=== PATIENT | male | born 2000 | race Caucasian/White ===

== ENCOUNTER 2023-07-10 10:38 | Outpatient (OUT) | payer BC, OTHER, SELFPAY ==
[2023-07-10 11:49] LABS: Alanine Aminotransferase 85 U/L (16-63); Albumin Level 3.9 g/dL (3.4-5.0); Alkaline Phosphatase 72 U/L (46-116); Anion Gap 13.4; Aspartate Amino Transferase 28 U/L (15-37); BUN Creatinine Ratio 17.2; Bilirubin Total 0.3 mg/dL (0.2-1.0); Calcium 8.9 mg/dL (8.5-10.1); Carbon Dioxide 26.8 mmol/L (21.0-32.0); Chloride 105 mmol/L (98-107); Chol HDL Ratio 5.1; Cholesterol 205 mg/dL (<=200); Estimated GFR (African America >60 (>=60); Estimated GFR (Non-African Ame >60 (>=60); Glucose 99 mg/dL (74-106); HDL Cholesterol 40 mg/dL (40-60); Potassium 4.2 mmol/L (3.5-5.1); Sodium 141 mmol/L (136-145); Thyroid Stimulating Hormone 2.971 uIU/mL (0.358-3.740); Total Protein 7.9 g/dL (6.4-8.2); Triglycerides 124 mg/dL (<=150); VLDL CHOLESTEROL 24.8 mg/dL
[2023-07-10 11:50] LABS: Free T3 2.83 pg/mL (2.18-3.98)
[2023-07-10 14:04] LABS: Estimated Average Glucose 111 mg/dL; Glycohemoglobin A1C 5.5 % (4.5-6.2)
[2023-07-10 14:22] LABS: Basophils Percent Auto 0.3 % (0.2-2.0); Eosinophils Percent Auto 0.7 % (0.9-7.0); Hematocrit 42.9 % (42.0-54.0); Hemoglobin 13.9 g/dL (14.0-18.0); Immature Granulocytes Abs Auto 0.01 10^3/uL (0.00-0.03); Immature Granulocytes Pct Auto 0.2 % (0.0-0.5); Lymphocytes Absolute Auto 2.9 10^3/uL (1.2-3.8); Mean Corpuscular HGB Conc 32.4 g/dL (29.9-35.2); Mean Corpuscular Hemoglobin 28.4 pg (25.9-34.0); Mean Corpuscular Volume 87.7 fL (80.0-94.0); Monocytes Absolute Auto 0.4 10^3/uL (0.3-0.8); Monocytes Percent Auto 6.7 % (1.7-12.0); Neutrophils Absolute Auto 2.8 10^3/uL (1.4-6.5); Neutrophils Percent Auto 45.1 % (43.0-75.0); Platelet Count 303 10^3/uL (150-450); Red Blood Count 4.89 10^6/uL (4.70-6.10); White Blood Count 6.2 10^3/uL (4.0-11.0)
[2023-07-11 09:10] LABS: Insulin 34.8 uIU/mL (2.6-24.9)
== END 2023-07-10 10:39 | disposition home or self-care (01) ==
LOC: LAB 10:47
PROVIDERS: PCP Family Medicine; Visit Provider Family Medicine
DX: E03.9 Hypothyroidism, unspecified (principal); E66.01 Morbid (severe) obesity due to excess calories; E78.5 Hyperlipidemia, unspecified; R73.09 Other abnormal glucose; D64.9 Anemia, unspecified
CPT/HCPCS: 36415; 80053; 80061; 83036; 83525; 83540; 84436; 84439; 84443; 84481; 85025

== ENCOUNTER 2024-08-03 08:30 | Outpatient (OUT) | payer BC, OTHER, SELFPAY ==
[2024-08-03 10:57] LABS: Free T3 2.82 pg/mL (2.18-3.98); Thyroid Stimulating Hormone 2.567 uIU/mL (0.358-3.740)
== END 2024-08-03 08:31 | disposition home or self-care (01) ==
LOC: LAB 08:36
PROVIDERS: PCP Family Medicine; Visit Provider Family Medicine
DX: E03.9 Hypothyroidism, unspecified (principal)
CPT/HCPCS: 36415; 84436; 84443; 84481

== ENCOUNTER 2024-08-17 12:21 | Outpatient (OUT) | payer BC, OTHER, SELFPAY ==
--- OUTSIDE RECORDS SUMMARY | 2024-08-17 12:37 | XMS_ITS | CCD ---
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 fOM6xQQ9bR7fJzJuKeS1 OSwvE729OeNiaIOd Jsmmt4fex9nnbFh3XkLz KOYlnfTyxWjoSWI9w2On Oh36A5MolIayk5QxUlm6 ng12cYOjc0B8lSC1 O1HiSUDkypsmcAKyzHuk YC6xWGVzdapkZGBemJ0s RYZxV9h4FxOzLwO1MDlc R9LnjcT1RGKasSTk RFXlzVADbM4kklaml3fo lujhHrQaFPDqRTd4JEg8 QEBhnUavZuZyDNL9LfH0 FKN2iNIggC5kkZid hhgeuF8sDlg+XTP5aWFi nTPRUM3aPamzbTI+PHRk GUM2uGztGGixJTJoaP4p CBQvC9p5MkRrLdP5 POkfI0WmerO8NCPcvYSq BFHalKVDtH0hbhjnd8sz dowmPyYjHSXkISd6YAc2 LWFsaWduOiBsZWZ0 OqO7YIJ6rNCkgM8esXah fxmwvE1qDew+QmlydGgg ANZ7LRy4R7EfVzy8OWOp pBatIO4sxWUpCVdw Ya3ipDosvQhzMA9tFHSq bxslj041YoQov0svVLAs bKSpBPzeIDJ6F63eh2B2 LTZeOEBdVAV3eGF3 uB5bnMxgdlddlKRwvThl msQckIzwOXbmTKcuA575 NGKqhInsQfMiGFk5V6Mu Qpa1FDBdvIqfAD4y oGBlRQnjVe9nsKasjRxe SR8dEIAerkakg376KxGf d4mqFLGopKLwYFtxHBE2 W33zf5X0CZRlDSKb JGT6pZG6uA9diPajgdip bGVmdDsgdmVydGljYWwt HVvqN349APBxsNrgLnAw mSh1F6OoMsj9ZHAn qEcoIN6qjMIqYWxdIu8g sLwtbEriZO5pJBAfetcs o291DfTym6wuEOVkbMGi BBexFDI2Z47xw1H0 ZDOhTHUeNLB3oPJ6nC5k bGlnbjogbGVmdDsgdmVy nHnnSGjuMZojW519FFZu cDsnPlBhdGllbnQg TKsrLEs6T6FdEkfrfEB+ JT85UGPjVJ14zBVwtFOu l2peuQs2RyBsLYZmDLC5 rRqlMQkpu6VuUYHi Q47nmASdj8Z3MYWinYza dNCnIqYfuUL2oX7aLJjs snycy8oaodokLpogu4kx xq05wD43E38xJLbf ZHRoPSIzMCUiIHZhbGln ru9rlH0oEt0+PGNvbCB3 iTI1iC4dOWXcZnL2XAeo R817ZvTsmCRaStaz h0lca0bluLs7NwL3HSKk zrZtfMewPGZ3n1SjKq24 F62pPCquFYTtPRVzWJRj QQMjfEesjo2jrR8w Ii8+LCXkyLB7hFW2rX0p UrFlWmU0SNosI923WhFj hWSgNporI93dR4OhbIP+ DEDfMje1LHYysKez UT7kjLVyUVqmWl2xYVU4 RkChQvFkLYasG7QpEKZr znqtnttfzFN0TLVdASFp gE11Qf7noDfsZNCc rUHIaH3lfukgy7bfvlje IdGpIAMfDPq2CQl0UQXl lFpwDyJcDIP0BnX4SME5 lLKcaE2ivCulfxrf kF1rU6LuAXOeudbyWe81 yI5bCpVcZaV3EMxnGxt+ L79AXYGVNDMMBdYTQGDA DMJTCYCZCL41JT19 rZNbo2K0fGO1H8MbRKDn svurhjlirBD6JYTeDJFn rW06tTYcTOklSl7pv4K5 q640HBSjSAUuyJ95 Zz2bfKnxGHGanJJCtI6j mkvvd3mjivgoFrFrJFNg XIn7UWe0YOKcgTgkXaNr BFZ6GmQ5FPS4bYYg rM0lgElxsvmrjO1fKef+ MDgvMjcvMjAwMjwvdGQ+ HSSbLAW2xGsjVVgzRSNz gQ0nLZVbE1f0VvFh VpA7CMjvI6YcAMWcspwt Fv52wT4hXzVfPqS1OYxp L6ZqrrB2UQWhqJMqTAas BJW2I78pd3T1PGZm ZEWvWBI3qQE7lQ6niXnn bjogbGVmdDsgdmVydGlj YLycWJyhN476ZHRmyXis BlTvUBlnTFDpTH26 SN93nDPsk2U3hWZ1V8Sx QDGagyrozlmshOK1LCOz RSQgbR87tZCfWEjeSc3g l2Z7n121URQmQMIj cS39Db7qeMptCVEhaOPD sE4dbrdoo2lkjtkgEjNm ZZJpFUy0WZr6RQUrcNha EhNbFLA8ChK6QRY3 kIDosF3ztYulevosaR4r Oyc+TUFMRTwvdGQ+PHRk PJV7uGtrEBteETRjxR3z HYGdR4b9SjEfNtJ8 YTgtP9DsGAIqhmcfWi19 dJ9hBpMePgQ1QInuM4Xx ekV9HMUhrDKjYFjvHHU8 R02cs8V4CDSuGOCi LIH2gKY9uM5lqOyrmvvd bGVmdDsgdmVydGljYWwt ZNhgX392VDPeqCaePhBt ZFFwDX1fsWsgaBQ+ IK62gc84V4OaMprcRiw0 AKOiCEN2sAH2gO1eCCJe GVnfc5U1wSC7A6LwofXv lw7xf0tuKUVpNPjs A21biBUxj6W2APQtqEQ2 DZGlvFnaEsKxyD26Qfs+ RSRosPyal6IrBmtlg1xc n2zuyPi9ShGpMKBz sdZorWpbEDV6r3KiAa82 D36jQPznIKJgJVAvLVSd ECLtrBwooe2feG4pRh2+ FTZmjWV0yYZ3tG4h LxHqNgY7ZHbpM223ZvSz aUGxKqgqn4rai8ygzHr9 IjIwJSIgdmFsaWduPSJ0 j7ShVx35N9IkuWyk m3OiIei4dm14hNRug7T0 dAC5P6OjEQAwvehtkUOh qZquNX6nDYOwbmtfJOYx fS9uEMEqJ6e0JoKk DpY0PRrcQ9CgsaW4VDGv oGRvSBInrCPIkW9pxunc v6alxrgwWmMkFCKaIWr5 ALm3FHGcvPwzXjNe JJZ0TwW1GBT4cQHvfN9k iFujbvfobB2fQpc+UGh5 t9xliVWhOJ0kdDU3LX94 LU30jADum9F0iLO7 Z9VoSODgtbnnmmacdRV7 SRQwTBRghL22Vp3opDjj Nk3jQUOnUQX9OTXymRXb E5RbhE3xJxKnNLOo CVRfF0HoyMIbMCynL982 BMmaGnU0HVEhphTpJ5Kw UAFmnOnwWkB9b8F3Sx8H YV97PR93JJ40fXMp l5P5kXU6R4GgVGIouwhj xigrgJQ8DPSbHOEliT81 Lf4atSlpKl1kDXZaEYU8 FLSthPNvH1IoxP4u DwXgBDJfIHDiO4TjbGLh ZJbyN153UYhtBdL8CZKw xpNhM9DcKNCxkPjpDtL7 l5S3Hg5FKx06YH34 CH05nVSue3T7vLO2M6Py LXOvivknjwwxnOB9AHHo NRUxyR47Gu3bgDykQj1p HIZfIAX1PKGtjEJu T6KxjT5jKrVqRZDbGHKo S6BhxZLvUNkhF760TTuu HeW4YGQtluYqZ6CsXOJy sAxqSdN2s0B9Lv1Q XCywqiu7P6DyVdgvaYB+ NO72AZVnUQ07zKXpeTKb l0ubdCr5SkDtWLQtGWK5 zNexRXpxe5SnBKDz Y29 (more content not included)... [facility] Electronic Messagingon 06-28 Electronic Messaging --- --- --- --- --- --- --- --- --- From: Eloisa (Roberto)Eloisa To: CLIFFORD JOE Sent: 06/28/23 05:29:50 AM EST Subject: Discharge Summary Ready to View A summary regarding your recent visit is available in the Documents section of your Health Record. [facility] .QC SARS-CoV-2 (COVID-19)/Fl u/RSV (GeneXpert)on 06-27-2023 Internal Control Pass [facility] Comment on above: Order Comment: Order ed by Lorraine.[[email or web address]] Performed By: #### 7 [id number] ####[facility] (DEFAULT)[address] [place] [address] COVID/Flu/RSV (GeneXpert)on 06-27-2023 Flu A (GXpert COVFLURSV) Negative Normal Negative [facility] Comment on above: Performed By: #### 7 [id number] ####[facility] (DEFAULT)[address] [place] [address] Flu B (GXpert COVFLURSV) Negative Normal Negative [facility] Comment on above: Performed By: #### [id number] ####[facility] (DEFAULT)[address] [place] [address] RSV (GXpert COVFLURSV) Negative Normal Negative [facility] Comment on above: Performed By: #### 7 [id number], [id number] ####[facility] (DEFAULT)[address] [place] [address] SARS-CoV-2 (COVID-19) RNA MIGUEL ÁNGEL+probe Ql (Unsp spec) Negative Normal Negative [facility] Comment on above: Result Comment: Perf ormed by PCR methodology. Performed By: #### 7 [id number], [id number] ####[facility] (DEFAULT)[address] [place] [address] Discharge Noteon 06-27-2023 Discharge Note 2344-Pt medicated with IM Zofran. Pt given discharge instructions and verbalized understanding. Pt ambulated out of unit. [Electronically Signed on: 06/27/2023 23:49 EST] China Ortiz RN [Verified on: 06/27/2023 23:49 EST] China Ortiz RN [facility] ED Clinical Summaryon 2023 ED Clinical Summary [facility] - Emergency Department [address] [place], [place] [id number] ED Clinical Summary PERSON INFORMATION Name: CLIFFORD JOE Age: 23 Years Sex: MALE : 2000 MRN: Acct#: Visit Reason: Body aches; Cough; Nausea and vomiting; CONGESTION, VOMITING, COUGH Arrival: 06/27/2023 21:39:14 Discharge: 06/27/2023 23:44:00 LOS: 000 02:05 Check In: 06/27/2023 21:39:14 Checkout:06/27/2023 23:44:00 Address: [address] [place] [address] PCP: Provider, None PROVIDER INFORMATION Provider Role Assigned Unassigned China Ortiz RN ED Nurse 06/27/2023 22:14:06 Curly Encarnacion MD ED Provider 06/27/2023 23:02:53 VITALS INFORMATION Vital Sign Triage Latest Temperature Tympanic Temperature Temporal Artery Pulse Rate 120 bpm 120 bpm O2 Sat 99 % 99 % Respiratory Rate 18 br/min 18 br/min Blood Pressure /98 mmHg /98 mmHg MEDICAL INFORMATION Medications Given: Medication Dose Route ondansetron 4 mg Intramuscular Allergy Information: No known allergies PHYSICIAN DOCUMENTATION DISCHARGE INFORMATION: Discharge Disposition: Home Discharge Location: Home PATIENT EDUCATION INFORMATION Instructions: Influenza, Adult, Hcar-on-Msjl Follow-Up: With: Address: When: [place], [id number] [place], [place] [id number] [facility] () Within 5 to 7 days Comments: You were seen in the emergency department for evaluation of cough and cold symptoms. Your examination suggest this is from an viral upper respiratory infection, influenza. This will likely to improve over time. No antibiotic will be necessary as your immune system will likely get rid of the infection. Your symptoms may still be contagious to other people around you. Use universal precautions to avoid spreading the germs. Take 2 tablets acetaminophen or 2 tablets of ibuprofen 3 times a day as needed for aches or discomfort. Use throat lozenges or cough drops to help with throat irritation and cough. Contact your assigned on-call doctor for a follow-up appointment if you do not have a local family doctor. Alternatively, you may follow-up with the [facility] if you are not able to see a PCP in the recommended time. Continue with the current treatment as outlined by the ER physician, Dr Encarnacion. Called the emergency department if you have any questions concern. Return to the emergency department if you have significant symptoms that concerns you. DIAGNOSIS: Influenza-like illness Patient Understands: Yes - Patient/family/careg iver verbalizes understanding of instructions given Comment: [facility] ED Note - Physicianon 2023 ED Note - Physician Patient: CLIFFORD JOE Age: 23 years Sex: MALE : 2000 Associated Diagnoses: Influenza-like illness; Viral URI Author: Curly Encarnacion MD Basic Information Time seen: Date & time 06/28/2023 22:55:00. History source: Patient. Arrival mode: Private vehicle. History limitation: None. Additional information: Chief Complaint from Nursing Triage Note : Chief Complaint 06/27/2023 21:55 EST Chief Complaint vomiting, fever, sore throat, coughing, exposed to influenza. Onset this morning and worsening throughout the day. . History of Present Illness 23-year-old male presented to ER for evaluation of fever, chills, weakness, body aches. Vomiting. Patient has been around girlfriend with influenza-like illness. His girlfriend stated that she had definitely influenza infection. Has been around her friend and the friend's child, who has been tested several days ago, with positive influenza. This patient, apparently drank after the patient, several days ago. Yesterday started with a cough. Today felt worse. Complain of fever, vomiting, weakness, aches. Had been given buap-zzh-zxmltxz remedy at home, without improvement according to the patient. Recall that he had previous influenza vaccine when he was in high school but nothing recent. No other significant medical history Review of Systems Constitutional symptoms: Fever, chills, sweats, weakness, fatigue. Skin symptoms: No rash, Eye symptoms: Vision unchanged. ENMT symptoms: Sore throat, nasal congestion. Respiratory symptoms: Cough. Gastrointestinal symptoms: Vomiting. Genitourinary symptoms: No dysuria, Musculoskeletal symptoms: Muscle pain, Joint pain. Neurologic symptoms: Headache. Health Status Allergies: Allergic Reactions (Selected) No known allergies. Past Medical/ Family/ Social History Medical history: No active or resolved past medical history items have been selected or recorded., Reviewed as documented in chart. Surgical history: No active procedure history items have been selected or recorded., Reviewed as documented in chart. Family history: No family history items have been selected or recorded., Reviewed as documented in chart. Social history: Social & Psychosocial Habits Alcohol 06/27/2023 Alcohol Use: Never Substance Use 06/27/2023 Substance use: Never Tobacco 06/27/2023 Smoking tobacco use: Never tobacco user Electronic Cigarette/Vaping 06/27/2023 Electronic Cigarette Use: Never , Reviewed as documented in chart. Problem list: No qualifying data available . Physical Examination Vital Signs Vital Signs 06/27/2023 21:55 EST Temperature Oral 37.2 DegC Peripheral Pulse Rate 120 bpm HI Respiratory Rate 18 br/min Systolic Blood Pressure 122 mmHg Diastolic Blood Pressure 98 mmHg HI SpO2 99 % Oxygen Therapy Room air . Measurements 06/27/2023 21:55 EST Height 180.34 cm Weight 131.54 kg Weight Dosing 131.540 kg Body Mass Index Measured 40.45 kg/m2 . General: Examination revealed mildly ill-appearing male, awake and alert, appropriate, without obvious distress at this time. Answering questions appropriately, tachycardic. Warm to touch. Skin: Warm, dry. Head: Normocephalic, atraumatic. Neck: Supple, trachea midline, no tenderness. Eye: Extraocular movements are intact, normal conjunctiva. Ears, nose, mouth and throat: Hearing normal, slight nasal congestion. Wearing facial mask. Cardiovascular: No murmur, Normal peripheral perfusion, No edema, Tachycardia, S1, S2. Respiratory: Lungs are clear to auscultation, respirations are non-labored, breath sounds are equal, Symmetrical chest wall expansion. Gastrointestinal: Soft, Nontender, Normal bowel sounds. Back: Normal range of motion. Musculoskeletal: Normal ROM, normal strength, no tenderness, no swelling. Neurological: Alert and oriented to person, place, time, and situation, No focal neurological deficit observed. Psychiatric: Cooperative. Medical Decision Making Differential Diagnosis: Fever, viral syndrome, pharyngitis, influenza. Results review: Lab results : Lab Flowsheet 06/27/2023 21:50 EST SARS-CoV-2(Covid19)P CR(GXpert COVFLURSV) Negative Flu A (GXpert COVFLURSV) Negative Flu B (GXpert COVFLURSV) Negative RSV (GXpert COVFLURSV) Negative , Interpretation. Reexamination/ Reevaluation Relevant differential diagnosis: See above discussion Number and complexity of problems: 23-year-old male presented to ER for evaluation of nasal congestion, sore throat, vomiting, flulike illness. Patient has been around his girlfriend who had similar illness. She had symptoms several days prior to the patient. She is positive on testing for influenza A. She was also had exposure to other friends with positive influenza. Tests ordered and independent Interpretation: Patient COVID, influenza and RSV was negative. Even though he had a negative testing, I believe that his symptoms likely secondary to influenza and the (more content not included)... Normal [facility] ED Note-Nursingon 06-27-2023 ED Note-Nursing 2245-Pt brought back to rm 9. Awaiting swab results. Normal [facility] ED Patient Summaryon 024 ED Patient Summary [facility] - Emergency Department [address] [place] [address] PATIENT DISCHARGE INSTRUCTIONS Patient Information Name: CLIFFORD JOE Age: 23 Years Date of : 2000 Reason For Visit: Body aches; Cough; Nausea and vomiting; CONGESTION, VOMITING, COUGH Arrival Time: 06/27/2023 21:39:14 Primary Care Physician: Provider, None Attending Physician: Curly Encarnacion MD Comment: Visit Diagnosis: Diagnoses This Visit Body aches ([id number]) Cough (59309184) Influenza-like illness (J11.1) Nausea and vomiting ([id number]) The Pharmacy at [facility] is open Friday through Friday from 9A to 6P and Friday and Friday from 9A to 5P Prescription Information: If you have been given a prescription for narcotics, seek immediate medical attention if you have any difficulty breathing or any sudden status changes such as confusion and sleepiness. If you or anyone you know is experiencing suicidal thoughts, mental health, alcohol and/or drug addiction problems; contact the [facility] 02/12 Crisis Hotline -Text 4HOPE [place] 734982. If you received any narcotics, sedation, or any other medication that causes drowsiness for the next 24 hours, unless otherwise directed: ? Do not drive a car. ? Do not operate machinery such as power tools, lawn mowers, drills, sewing machines, or stoves ? Avoid alcoholic beverages and drugs for allergies, nerves, or sleep ? Do not make important personal or business decisions or sign any legal documents With: Address: When: [place] Leone [facility], [address] [place] [id number] Business (1) Within 5 to 7 days Comments: You were seen in the emergency department for evaluation of cough and cold symptoms. Your examination suggest this is from an viral upper respiratory infection, influenza. This will likely to improve over time. No antibiotic will be necessary as your immune system will likely get rid of the infection. Your symptoms may still be contagious to other people around you. Use universal precautions to avoid spreading the germs. Take 2 tablets acetaminophen or 2 tablets of ibuprofen 3 times a day as needed for aches or discomfort. Use throat lozenges or cough drops to help with throat irritation and cough. Contact your assigned on-call doctor for a follow-up appointment if you do not have a local family doctor. Alternatively, you may follow-up with the [facility] if you are not able to see a PCP in the recommended time. Continue with the current treatment as outlined by the ER physician, Dr Encarnacion. Called the emergency department if you have any questions concern. Return to the emergency department if you have significant symptoms that concerns you. Medication Information: The exam and treatment you received today in the [facility] Emergency Department were for an urgent problem and are not intended as complete care. It is important for you to follow up with a doctor, nurse practitioner, or physician?s assistant professor of english for ongoing care. If your symptoms become worse or you do not improve as expected and you are unable to reach your usual health care provider, you should return to the Emergency Department, we are available 24 hours a day. For those patients who have received Radiology results, the interpretation of your X-ray as given to you by our Emergency Department physician is only a preliminary report. The Radiologist will review your films and if there is a change in the diagnosis you will be notified by phone. Please make sure you have provided a working phone number so we can reach you if necessary. In the event that you had a lab culture while you were a patient in the Emergency Department, you will be notified by phone if there is a need to change your antibiotic. Please make sure you have provided a working phone number so we can reach you if necessary. [facility] Emergency Department has provided you with a complete list of medications post discharge. Please inform your on call/provider of your visit and for further instruction on these medications. Any specific questions regarding your chronic medications and dosages should be discussed with your primary care physician(s) and/or pharmacist. New Medications [facility], [address] [place] [phone], [phone] ondansetron (ondansetron 4 mg oral tablet, disintegrating) 1 tab(s) Oral (given by mouth) 3 times a day (scheduled) as needed as needed for nausea/vomiting for 3 Days. Refills: 0. Visit Information Allergies: Substance Reaction Symptoms Type Comments No known allergies Drug Vital Signs: Vitals and Measurements this Visit (last charted value for your 06/27/2023 visit) Vital Signs This Visit Temperature Oral: 37.2 DegC Peripheral Pulse Rate: 120 bpm Respi (more content not included)... Normal [facility] XR FOOT RIGHT 3+ VIEWSon XR FOOT RIGHT 3+ VIEWS Interpreted By: Kuldeep John, STUDY: XR FOOT RIGHT 3+ VIEWS INDICATION: Signs/Symptoms:dog bite. COMPARISON: None ACCESSION NUMBER(S): [id number] ORDERING CLINICIAN: SERGEY LOERA FINDINGS: Nonspecific soft tissue swelling of the dorsum of the right forefoot. No fracture or radiopaque foreign body. No osseous abnormality. IMPRESSION: Right forefoot soft tissue swelling. No osseous abnormality seen. Signed by: Kuldeep John 04/29/2023 3:55 PM Dictation workstation: [id number] [facility] XR Foot - right 3 Viewson Right forefoot soft tissue swelling. No osseous abnormality seen. Signed by: Kuldeep John 04/29/2023 3:55 PM Dictation workstation: [id number] MMODAL Interpreted By: Kuldeep John, STUDY: XR FOOT RIGHT 3+ VIEWS INDICATION: Signs/Symptoms:dog bite. COMPARISON: None ACCESSION NUMBER(S): [id number] ORDERING CLINICIAN: SERGEY LOERA FINDINGS: Nonspecific soft tissue swelling of the dorsum of the right forefoot. No fracture or radiopaque foreign body. No osseous abnormality. [facility] MMODAL Kuldeep John MD - 04/29/2023 Interpreted By: Kuldeep John, STUDY: XR FOOT RIGHT 3+ VIEWS INDICATION: Signs/Symptoms:dog bite. COMPARISON: None ACCESSION NUMBER(S): [id number] ORDERING CLINICIAN: SERGEY LOERA FINDINGS: Nonspecific soft tissue swelling of the dorsum of the right forefoot. No fracture or radiopaque foreign body. No osseous abnormality. IMPRESSION: Right forefoot soft tissue swelling. No osseous abnormality seen. Signed by: Kuldeep John 04/29/2023 3:55 PM Dictation workstation: [id number] [facility] Work Phone: Radiology Study observation (narrative) [facility] Work Phone: XR Foot - right 3 ViewsOrder ed By: Kuldeep John on 04-29-2023 [facility] Work Phone: AMYLASEon 07-18-2022 Amylase [Catalytic activity/Vol] 38 U/L Normal 25-115 [facility] Comment on above: Performed By: #### C BC #### [facility] [address] [place] [address] Dr. Edilberto Holloway CBC AUTO DIFFon 07-18-2022 BASO # 0.0 103/ul Normal 0.0-0.1 [facility] Comment on above: Performed By: #### C BC #### [facility] [address] [place] [address] Dr. Edilberto Holloway Basophils/100 WBC (Bld) 0.3 % Normal 0.2-2.0 [facility] Comment on above: Performed By: #### C BC #### [facility] [address] [place] [address] Dr. Edilberto Holloway EO # 0.0 103/ul Normal 0.0-0.7 [facility] Comment on above: Performed By: #### C BC #### [facility] [address] [place] [address] Dr. Edilberto Holloway Eosinophils/100 WBC (Bld) 0.3 % Critically low 0.9-7.0 [facility] Comment on above: Performed By: #### C BC #### [facility] [address] [place] [address] Dr. Edilberto Holloway Erythrocyte distribution width (RBC) [Ratio] 12.9 % Normal 11.0-15.0 [facility] Comment on above: Performed By: #### C BC #### [facility] [address] [place] [address] Dr. Edilberto Holloway Hematocrit (Bld) [Volume fraction] 44.1 % Normal 42.0-54.0 [facility] Comment on above: Performed By: #### C BC #### [facility] [address] [place] [address] Dr. Edilberto Holloway Hemoglobin (Bld) [Mass/Vol] 15.2 g/dL Normal 14.0-18.0 [facility] Comment on above: Performed By: #### C BC #### [facility] [address] [place] [address] Dr. Edilberto Holloway IG # 0.01 10e3/ul Normal 0.00-0.03 [facility] Comment on above: Performed By: #### C BC #### [facility] [address] [place] [address] Dr. Edilberto Holloway IG % 0.2 % Normal 0.0-0.5 [facility] Comment on above: Performed By: #### C BC #### [facility] [address] [place] [address] Dr. Edilberto Holloway LYMPH # 1.9 103/ul Normal 1.2-3.8 [facility] Comment on above: Performed By: #### C BC #### [facility] [address] [place] [address] Dr. Edilberto Holloway Lymphocytes/100 WBC (Bld) 31.2 % Normal 20.5-60.0 [facility] Comment on above: Performed By: #### C BC #### [facility] [address] [place] [address] Dr. Edilberto Holloway MANUAL DIFF REQ NO Normal [facility] Comment on above: Performed By: #### C BC #### [facility] [address] [place] [address] Dr. Edilberto Holloway MCH (RBC) [Entitic mass] 28.9 pg Normal 25.9-34.0 [facility] Comment on above: Performed By: #### C BC #### [facility] [address] [place] [address] Dr. Edilberto Holloway MCHC (RBC) [Mass/Vol] 34.5 g/dL Normal 29.9-35.2 [facility] Comment on above: Performed By: #### C BC #### [facility] [address] [place] [address] Dr. Edilberto Holloway MCV (RBC) [Entitic vol] 83.8 fL Normal 80.0-94.0 [facility] Comment on above: Performed By: #### C BC #### [facility] [address] [place] [address] Dr. Edilberto Holloway MONO # 0.4 103/ul Normal 0.3-0.8 [facility] Comment on above: Performed By: #### C BC #### [facility] [address] [place] [address] Dr. Edilberto Holloway Monocytes/100 WBC (Bld) 6.5 % Normal 1.7-12.0 [facility] Comment on above: Performed By: #### C BC #### [facility] [address] [place] [address] Dr. Edilberto Holloway NEUT # 3.7 103/ul Normal 1.4-6.5 [facility] Comment on above: Performed By: #### C BC #### [facility] [address] [place] [address] Dr. Edilberto Holloway Neutrophils/100 WBC (Bld) 61.5 % Normal 43.0-75.0 [facility] Comment on above: Performed By: #### C BC #### [facility] [address] [place] [address] Dr. Edilberto Holloway Platelet mean volume (Bld) [Entitic vol] 9.5 fL Normal 9.5-13.5 [facility] Comment on above: Performed By: #### C BC #### [facility] [address] [place] [address] Dr. Edilberto Holloway PLT 280 103/ul Normal 150-450 [facility] Comment on above: Performed By: #### C BC #### [facility] [address] [place] [address] Dr. Edilberto Holloway RBC 5.26 106/ul Normal 4.70-6.10 [facility] Comment on above: Performed By: #### C BC #### [facility] [address] [place] [address] Dr. Edilberto Holloway WBC 6.0 103/ul Normal 4.0-11.0 [facility] Comment on above: Performed By: #### C BC #### [facility] [address] [place] [address] Dr. Edilberto Holloway FREE THYROXINE INDEX T7on FTI 2.89 Normal 1.30-4.50 [facility] Comment on above: Performed By: #### C BC #### [facility] [address] [place] [address] Dr. Edilberto Holloway T3U 37.0 % Normal 33.0-40.0 [facility] Comment on above: Performed By: #### C BC #### [facility] [address] [place] [address] Dr. Edilberto Holloway T4 [Mass/Vol] 7.80 ug/dL Normal 4.50-12.10 [facility] Comment on above: Performed By: #### C BC #### [facility] [address] [place] [address] Dr. Edilberto Holloway LIPASEon 07-18-2022 Lipase [Catalytic activity/Vol] 57.0 U/L Critically low 73.0-393.0 [facility] Comment on above: Performed By: #### C BC #### [facility] [address] [place] [address] Dr. Edilberto Holloway OCC BLD IMMUNO SCREENon 03- OCCULT BLOOD Negative Normal NEGATIVE [facility] Comment on above: Performed By: #### O BSCRN #### [facility] [address] [place] [address] Dr. Edilberto Holloway PROF 14(COMP METB)on 023 Albumin [Mass/Vol] 4.5 g/dL Normal 3.4-5.0 [facility] Comment on above: Performed By: #### C BC #### [facility] [address] [place] [address] Dr. Edilberto Holloway Albumin/Globulin [Mass ratio] 1.3 {ratio} Normal [facility] Comment on above: Performed By: #### C BC #### [facility] [address] [place] [address] Dr. Edilberto Holloway ALP [Catalytic activity/Vol] 84 U/L Normal 46-116 [facility] Comment on above: Performed By: #### C BC #### [facility] [address] [place] [address] Dr. Edilberto Holloway ALT [Catalytic activity/Vol] 84 U/L Critically high 16-63 [facility] Comment on above: Performed By: #### C BC #### [facility] [address] [place] [address] Dr. Edilberto Holloway Anion gap [Moles/Vol] 14.2 mmol/L Normal [facility] Comment on above: Performed By: #### C BC #### [facility] [address] [place] [address] Dr. Edilberto Holloway AST [Catalytic activity/Vol] 31 U/L Normal 15-37 [facility] Comment on above: Performed By: #### C BC #### [facility] [address] [place] [address] Dr. Edilberto Holloway Bilirubin [Mass/Vol] 0.6 mg/dL Normal 0.2-1.0 [facility] Comment on above: Performed By: #### C BC #### [facility] [address] [place] [address] Dr. Edilberto Holloway Calcium [Mass/Vol] 9.5 mg/dL Normal 8.5-10.1 [facility] Comment on above: Performed By: #### C BC #### [facility] [address] [place] [address] Dr. Edilberto Holloway Chloride [Moles/Vol] 105 mmol/L Normal 98-107 [facility] Comment on above: Performed By: #### C BC #### [facility] [address] [place] [address] Dr. Edilberto Holloway CO2 [Moles/Vol] 27.7 mmol/L Normal 21.0-32.0 [facility] Comment on above: Performed By: #### C BC #### [facility] [address] [place] [address] Dr. Edilberto Holloway Creatinine [Mass/Vol] 1.04 mg/dL Normal 0.70-1.30 [facility] Comment on above: Performed By: #### C BC #### [facility] [address] [place] [address] Dr. Edilberto Holloway EGFR-AF MONTENEGRIN >60 Normal >=60 [facility] Comment on above: Performed By: #### C BC #### [facility] [address] [place] [address] Dr. Edilberto Holloway EGFR-NON AF MONTENEGRIN >60 Normal >=60 [facility] Comment on above: Performed By: #### C BC #### [facility] [address] [place] [address] Dr. Edilberto Holloway Globulin (S) [Mass/Vol] 3.4 g/dL Normal [facility] Comment on above: Performed By: #### C BC #### [facility] [address] [place] [address] Dr. Edilberto Holloway Glucose [Mass/Vol] 104 mg/dL Normal 74-106 [facility] Comment on above: Performed By: #### C BC #### [facility] [address] [place] [address] Dr. Edilberto Holloway Potassium [Moles/Vol] 3.9 mmol/L Normal 3.5-5.1 [facility] Comment on above: Performed By: #### C BC #### [facility] [address] [address] [address] Edilberto Holloway Protein [Mass/Vol] 7.9 g/dL Normal 6.4-8.2 [facility] Comment on above: Performed By: #### C BC #### [facility] [address] [address] [address] Edilberto Holloway Sodium [Moles/Vol] 143 mmol/L Normal 136-145 [facility] Comment on above: Performed By: #### C BC #### [facility] [address] [address] [address] Edilberto Holloway Urea nitrogen [Mass/Vol] 15.0 mg/dL Normal 7.0-18.0 [facility] Comment on above: Performed By: #### C BC #### [facility] [address] [address] [address] Edilberto Holloway Urea nitrogen/Creatinine [Mass ratio] 14.4 mg/mg Normal [facility] Comment on above: Performed By: #### C BC #### [facility] [address] [address] [address] Ediblerto Holloway TSHon 07-18-2022 TSH 2.480 uIU/mL Normal 0.358-3.740 [facility] Comment on above: Performed By: #### C BC #### [facility] [address] [address] [address] Edilberto Holloway CBC with Auto Differentialon 07-15-2022 Absolute Eos # [facility] Absolute Immature Granulocyte [facility] Absolute Lymph # 1.57 [facility] Absolute Auglaize # 0.47 [facility] Basophils Absolute [facility] Basophils/100 WBC (Bld) 0 % 0 - 2 % [facility] Eosinophils/100 WBC (Bld) 0 % Low 1 - 4 % [facility] Hematocrit (Bld) [Volume fraction] 45.0 % 40.7 - 50.3 % [facility] Hemoglobin (Bld) [Mass/Vol] 15.0 g/dL 13.0 - 17.0 g/dL [facility] Immature granulocytes/100 WBC (Bld) 0 % [address] [facility] Interpretation and review of laboratory results Abnormal [facility] Lymphocytes/100 WBC (Bld) 24 % Low 25 - 45 % [facility] MCH (RBC) [Entitic mass] 29.0 pg 25.2 - 33.[address] [facility] MCHC (RBC) [Mass/Vol] 33.3 g/dL 28.4 - 34.8 g/dL [facility] MCV (RBC) [Entitic vol] 87.0 fL 82.6 - 102.[address] [facility] Monocytes/100 WBC (Bld) 7 % 2 - 8 % [facility] NRBC Automated 0.0 0.0 per 100 WBC [facility] Platelet distribution width (Bld) [Ratio] 12.6 % 11.8 - 14.4 % [facility] Platelet mean volume (Bld) [Entitic vol] 10.1 fL 8.1 - 13.[address] [facility] Platelets (Bld) [#/Vol] 253 10*3/uL [facility] RBC (Bld) [#/Vol] 5.17 10*6/uL 4.21 - 5.7 7 m/uL [facility] Segmented neutrophils/100 WBC (Bld) 69 % High 34 - 64 % [facility] Segs Absolute 4.[address] [facility] WBC (Bld) [#/Vol] 6.6 10*3/uL [facility] CBC with Diffon 07-15-2022 Abs. Basophil <0.03 Normal 0.00-0.20 [facility] Comment on above: Performed By: #### L IP, SHRUTHI, CP #### [employer] [address] [place] [address] Level Vial Inspector: Adalid Blanchard MD Abs. Eosinophil <0.03 Normal 0.00-0.44 [facility] Comment on above: Performed By: #### L IP, CDP, CP #### [employer] [address] [place] [address] Level Vial Inspector: Adalid Blanchard MD Abs.Imm.Granulocyte <0.03 Normal 0.00-0.30 [facility] Comment on above: Performed By: #### L IP, CDP, CP #### [address] [address] Level Vial Inspector: Adalid Blanchard MD Abs.Neutrophil (Seg) 4.51 k/uL Normal 1.80-8.00 [facility] Comment on above: Performed By: #### L IP, CDP, CP #### [facility] [employer] [address] [place] [address] Level Vial Inspector: Adalid Blanchard MD Basophils/100 WBC (Bld) 0 % Normal 0-2 [facility] Comment on above: Performed By: #### L IP, CDP, CP #### [facility] [employer] [address] [place] [address] Level Vial Inspector: Adalid Blanchard MD Eosinophils/100 WBC (Bld) 0 % Low 1-4 [facility] Comment on above: Performed By: #### L IP, CDP, CP #### [facility] [employer] [address] [place] [address] Level Vial Inspector: Adalid Blanchard MD Erythrocyte distribution width (RBC) [Ratio] 12.6 % Normal 11.8-14.4 [facility] Comment on above: Performed By: #### L IP, CDP, CP #### [facility] [employer] [address] [place] [address] Level Vial Inspector: Adalid Blanchard MD Hematocrit (Bld) [Volume fraction] 45.0 % Normal 40.7-50.3 [facility] Comment on above: Performed By: #### L IP, CDP, CP #### [facility] [address] [place] [address] Level Vial Inspector: Adalid Blanchard MD Hemoglobin (Bld) [Mass/Vol] 15.0 g/dL Normal 13.0-17.0 [facility] Comment on above: Performed By: #### L IP CDP, CP #### [address] [address] Level Vial Inspector: Adalid Blanchard MD Immature granulocytes/100 WBC (Bld) 0 % Normal 0 [facility] Comment on above: Performed By: #### L IP, CDP, CP #### [address] [address] Level Vial Inspector: Adalid Blanchard MD Lymphocytes (Bld) [#/Vol] 1.57 10*3/uL Normal 1.20-5.20 [facility] Comment on above: Performed By: #### L IP CDP, CP #### [address] [address] Level Vial Inspector: Adalid Blanchard MD Lymphocytes/100 WBC (Bld) 24 % Low 25-45 [facility] Comment on above: Performed By: #### L JALEEL CDP, CP #### [address] [address] Level Vial Inspector: Adalid Blanchard MD MCH (RBC) [Entitic mass] 29.0 pg Normal 25.2-33.5 [facility] Comment on above: Performed By: #### L JALEEL CDP, CP #### [address] [address] Level Vial Inspector: Adalid Blanchard MD MCHC (RBC) [Mass/Vol] 33.3 g/dL Normal 28.4-34.8 [facility] Comment on above: Performed By: #### L IP, CDP, CP #### [facility] [employer] [address] [place] [address] Level Vial Inspector: Adalid Blanchard MD MCV (RBC) [Entitic vol] 87.0 fL Normal 82.6-102.9 [facility] Comment on above: Performed By: #### L IP, CDP, CP #### [address] [address] Level Vial Inspector: Adalid Blanchard MD Monocytes (Bld) [#/Vol] 0.47 10*3/uL Normal 0.10-1.40 [facility] Comment on above: Performed By: #### L IP, CDP, CP #### [address] [address] Level Vial Inspector: Adalid Blanchard MD Monocytes/100 WBC (Bld) 7 % Normal 2-8 [facility] Comment on above: Performed By: #### L IP, CDP, CP #### [address] [address] Level Vial Inspector: Adalid Blanchard MD Neutrophil (Seg) 69 % High 34-64 [facility] Comment on above: Performed By: #### L IP, CDP, CP #### [address] [address] Level Vial Inspector: Adalid Blanchard MD NRBC Automated 0.0 per 100 WBC Normal 0.0 [facility] Comment on above: Performed By: #### L IP, CDP, CP #### [address] [address] Level Vial Inspector: Adalid Blanchard MD Platelet mean volume (Bld) [Entitic vol] 10.1 fL Normal 8.1-13.5 [facility] Comment on above: Performed By: #### L IP, CDP, CP #### [address] [address] Level Vial Inspector: Adalid Blanchard MD Platelets (Bld) [#/Vol] 253 10*3/uL Normal 138-453 [facility] Comment on above: Performed By: #### L IP, CDP, CP #### [facility] [address] [place], [place] [id number] Level Vial Inspector: Adalid Blanchard MD RBC (Bld) [#/Vol] 5.17 10*6/uL Normal 4.21-5.77 [facility] Comment on above: Performed By: #### L SHRUTHI MARMOLEJO, CP #### [facility] [address] [place], [place] [id number] Level Vial Inspector: Adalid Blanchard MD WBC (Bld) [#/Vol] 6.6 10*3/uL Normal 4.5-13.5 [facility] Comment on above: Performed By: #### L SHRUTHI MARMOLEJO, CP #### [facility] [address] [place], [place] [id number] Level Vial Inspector: Adalid Blanchard [facility] Albumin [Mass/Vol] 4.6 g/dL 3.5 - 5.2 g/dL [facility] Albumin/Globulin [Mass ratio] 1.7 {ratio} 1.0 - 2.[address] [facility] ALP [Catalytic activity/Vol] 85 U/L 40 - 129 U/L [facility] ALT [Catalytic activity/Vol] 55 U/L High 5 - 41 U/L [facility] Anion gap [Moles/Vol] 12 mmol/L 9 - 17 mmol/L [facility] AST [Catalytic activity/Vol] 31 U/L NINF - 40 U/L [facility] Bilirubin [Mass/Vol] 0.5 mg/dL 0.3 - 1.2 mg/dL [facility] Calcium [Mass/Vol] 9.3 mg/dL 8.6 - 10. 4 mg/dL [facility] Chloride [Moles/Vol] 105 mmol/L 98 - 107 mmol/L [facility] CO2 [Moles/Vol] 23 mmol/L 20 - 31 mmol/L [facility] Creatinine [Mass/Vol] 0.98 mg/dL 0.70 - 1.20 mg/dL [facility] GFR/1.73 sq M.predicted MDRD (S/P/Bld) [Vol rate/Area] - PINF [facility] Comment on above: These results are not intended for use in patients <18 years of age. eGFR results are calculated without a race factor using the 2020 CKD-EPI equation. Careful clinical correlation is recommended, particularly when comparing to results calculated using previous equations. The CKD-EPI equation is less accurate in patients with extremes of muscle mass, extra-renal metabolism of creatine, excessive creatine ingestion, or following therapy that affects renal tubular secretion. Glucose [Mass/Vol] 104 mg/dL High 70 - 99 mg/dL [facility] Interpretation and review of laboratory results Abnormal [facility] Potassium [Moles/Vol] 3.9 mmol/L 3.7 - 5.3 mmol/L [facility] Protein [Mass/Vol] 7.3 g/dL 6.4 - 8.3 g/dL [facility] Sodium [Moles/Vol] 140 mmol/L 135 - 144 mmol/L [facility] Urea nitrogen [Mass/Vol] 14 mg/dL 6 - 20 mg/dL [facility] COVID-19, Rapidon 07-15-2022 SARS-CoV-2 (COVID-19) RdRp gene MIGUEL ÁNGEL+probe Ql (Resp) Not detected Not Detected [facility] Comment on above: Rapid NAAT: The specimen is NEGATIVE for SARS-CoV-2, the novel coronavirus associated with COVID-19. The ID NOW COVID-19 assay is designed to detect the virus that causes COVID-19 in patients with signs and symptoms of infection who are suspected of COVID-19. An individual without symptoms of COVID-19 and who is not shedding SARS-CoV-2 virus would expect to have a negative (not detected) result in this assay. Negative results should be treated as presumptive and, if inconsistent with clinical signs and symptoms or necessary for patient management, should be tested with an alternative molecular assay. Negative results do not preclude SARS-CoV-2 infection and should not be used as the sole basis for patient management decisions. Fact sheet for Healthcare Providers: https://www.fda.gov/media/836303/download Fact sheet for Patients: https://www.fda.gov/media/705903/download Methodology: Isothermal Nucleic Acid Amplification Specimen Description .NASOPHARYNGEAL SWAB [facility] Comp Metabolic Profon 2022 Albumin [Mass/Vol] 4.6 g/dL Normal 3.5-5.2 [facility] Comment on above: Performed By: #### L IP, CDP, CP #### [facility] [employer] [address] [place] [address] Level Vial Inspector: Adalid Blanchard MD Albumin/Glob Ratio 1.7 Normal 1.0-2.5 [facility] Comment on above: Performed By: #### L IP, CDP, CP #### [facility] [employer] [address] [place] [address] Level Vial Inspector: Adalid Blanchard MD Alkaline Phos 85 U/L Normal 40-129 [facility] Comment on above: Performed By: #### L IP, CDP, CP #### [facility] [employer] [address] [place] [address] Level Vial Inspector: Adalid Blanchard MD ALT [Catalytic activity/Vol] 55 U/L High 5-41 [facility] Comment on above: Performed By: #### L IP, CDP, CP #### [facility] [address] [place] [address] Level Vial Inspector: Adalid Blanchard MD Anion gap [Moles/Vol] 12 mmol/L Normal 9-17 [facility] Comment on above: Performed By: #### L IP, CDP, CP #### [facility] [address] [place] [address] Level Vial Inspector: Adalid Blanchard MD AST [Catalytic activity/Vol] 31 U/L Normal <40 [facility] Comment on above: Performed By: #### L IP, CDP, CP #### [facility] [address] [place] [address] Level Vial Inspector: Adalid Blanchard MD Bilirubin [Mass/Vol] 0.5 mg/dL Normal 0.3-1.2 [facility] Comment on above: Performed By: #### L IP, CDP, CP #### [facility] [employer] [address] [place] [address] Level Vial Inspector: Adalid Blanchard MD Calcium [Mass/Vol] 9.3 mg/dL Normal 8.6-10.4 [facility] Comment on above: Performed By: #### L IP, CDP, CP #### [facility] [employer] [address] [place] [address] Level Vial Inspector: Adalid Blanchard MD Chloride [Moles/Vol] 105 mmol/L Normal 98-107 [facility] Comment on above: Performed By: #### L IP, CDP, CP #### [facility] [employer] [address] [place] [address] Level Vial Inspector: Adalid Blanchard MD CO2 [Moles/Vol] 23 mmol/L Normal 20-31 [facility] Comment on above: Performed By: #### L IP CDP, CP #### [facility] [employer] [address] [place] [address] Level Vial Inspector: Adalid Blanchard MD Creatinine [Mass/Vol] 0.98 mg/dL Normal 0.70-1.20 [facility] Comment on above: Performed By: #### L IP, CDP, CP #### [facility] [employer] [address] [place] [address] Level Vial Inspector: Adalid Blanchard MD GFR/1.73 sq M.predicted among non-blacks MDRD (S/P/Bld) [Vol rate/Area] mL/min/{1.73_m2} Normal >60 [facility] Comment on above: Result Comment: These results are not intended for use in patients <18 years of age. eGFR results are calculated without a race factor using the 2020 CKD-EPI equation. Careful clinical correlation is recommended, particularly when comparing to results calculated using previous equations. The CKD-EPI equation is less accurate in patients with extremes of muscle mass, extra-renal metabolism of creatine, excessive creatine ingestion, or following therapy that affects renal tubular secretion. Performed By: #### L SHRUTHI MARMOLEJO, CP #### [address] [address] Level Vial Inspector: Adalid Blanchard MD Glucose [Mass/Vol] 104 mg/dL High 70-99 [facility] Comment on above: Performed By: #### L SHRUTHI MARMOLEJO, CP #### [facility] [address] [place] [address] Level Vial Inspector: Adalid Blanchard MD Potassium [Moles/Vol] 3.9 mmol/L Normal 3.7-5.3 [facility] Comment on above: Performed By: #### L SHRUTHI MARMOLEJO, CP #### [address] [address] Level Vial Inspector: Adalid Blanchard MD Protein [Mass/Vol] 7.3 g/dL Normal 6.4-8.3 [facility] Comment on above: Performed By: #### L SHRUTHI MARMOLEJO, CP #### [address] [address] Level Vial Inspector: Adalid Blanchard MD Sodium [Moles/Vol] 140 mmol/L Normal 135-144 [facility] Comment on above: Performed By: #### L SHRUTHI MARMOLEJO, CP #### [facility] [address] [place] [address] Level Vial Inspector: Adalid Blanchard MD Urea nitrogen [Mass/Vol] 14 mg/dL Normal 6-20 [facility] Comment on above: Performed By: #### L SHRUTHI MARMOLEJO, CP #### [facility] [employer] [address] [place] [address] Level Vial Inspector: Adalid Blanchard MD Lipaseon 07-15-2022 Lipase [Catalytic activity/Vol] 18 U/L Normal 13-60 [facility] Comment on above: Performed By: #### L IP, CDP, CP #### [facility] [employer] [address] [place] [address] Level Vial Inspector: Adalid Blanchard MD Lipase [Catalytic activity/Vol] 18 U/L 60 U/L [facility] No Panel Informationon 07-[address] [facility] [id number] 07-15-2022 SARS-CoV-2 (COVID-19) RNA MIGUEL ÁNGEL+probe Ql (Unsp spec) Not detected Normal NOTDET [facility] Comment on above: Result Comment: Rapid NAAT: The specimen is NEGATIVE for SARS-CoV-2, the novel coronavirus associated with COVID-19. The ID NOW COVID-19 assay is designed to detect the virus that causes COVID-19 in patients with signs and symptoms of infection who are suspected of COVID-19. An individual without symptoms of COVID-19 and who is not shedding SARS-CoV-2 virus would expect to have a negative (not detected) result in this assay. Negative results should be treated as presumptive and, if inconsistent with clinical signs and symptoms or necessary for patient management, should be tested with an alternative molecular assay. Negative results do not preclude SARS-CoV-2 infection and should not be used as the sole basis for patient management decisions. Fact sheet for Healthcare Providers: https://www.fda.gov/media/510605/download Fact sheet for Patients: https://www.fda.gov/media/030942/download Methodology: Isothermal Nucleic Acid Amplification Performed By: #### C OVRB #### [facility] [employer] [address] [place] [address] Level Vial Inspector: Adalid Blanchard MD CBC AUTO DIFFon 07-13-2022 BASO # 0.0 103/ul Normal 0.0-0.1 [facility] Comment on above: Performed By: #### C BC #### [facility] [address] [address] [address] Edilberto Holloway Basophils/100 WBC (Bld) 0.3 % Normal 0.2-2.0 [facility] Comment on above: Performed By: #### C BC #### [facility] [address] [place] [address] Dr. Edilberto Holloway EO # 0.0 103/ul Normal 0.0-0.7 [facility] Comment on above: Performed By: #### C BC #### [facility] [address] [place] [address] Dr. Edilberto Holloway Eosinophils/100 WBC (Bld) 0.1 % Critically low 0.9-7.0 [facility] Comment on above: Performed By: #### C BC #### [facility] [address] [place] [address] Dr. Edilberto Holloway Erythrocyte distribution width (RBC) [Ratio] 12.9 % Normal 11.0-15.0 [facility] Comment on above: Performed By: #### C BC #### [facility] [address] [place] [address] Dr. Edilberto Holloway Hematocrit (Bld) [Volume fraction] 43.7 % Normal 42.0-54.0 [facility] Comment on above: Performed By: #### C BC #### [facility] [address] [place] [address] Dr. Edilberto Holloway Hemoglobin (Bld) [Mass/Vol] 15.2 g/dL Normal 14.0-18.0 [facility] Comment on above: Performed By: #### C BC #### [facility] [address] [place] [address] Dr. Edilberto Holloway IG # 0.01 10e3/ul Normal 0.00-0.03 [facility] Comment on above: Performed By: #### C BC #### [facility] [address] [place] [address] Dr. Edilberto Holloway IG % 0.1 % Normal 0.0-0.5 [facility] Comment on above: Performed By: #### C BC #### [facility] [address] [place] [address] Dr. Edilberto Holloway LYMPH # 1.6 103/ul Normal 1.2-3.8 [facility] Comment on above: Performed By: #### C BC #### [facility] [address] [place] [address] Dr. Edilberto Holloway Lymphocytes/100 WBC (Bld) 22.1 % Normal 20.5-60.0 [facility] Comment on above: Performed By: #### C BC #### [facility] [address] [place] [address] Dr. Edilberto Holloway MANUAL DIFF REQ NO Normal [facility] Comment on above: Performed By: #### C BC #### [facility] [address] [place] [address] Dr. Edilberto Holloway MCH (RBC) [Entitic mass] 29.1 pg Normal 25.9-34.0 [facility] Comment on above: Performed By: #### C BC #### [facility] [address] [place] [address] Dr. Edilberto Holloway MCHC (RBC) [Mass/Vol] 34.8 g/dL Normal 29.9-35.2 [facility] Comment on above: Performed By: #### C BC #### [facility] [address] [place] [address] Dr. Edilberto Holloway MCV (RBC) [Entitic vol] 83.6 fL Normal 80.0-94.0 [facility] Comment on above: Performed By: #### C BC #### [facility] [address] [place] [address] Dr. Edilberto Holloway MONO # 0.3 103/ul Normal 0.3-0.8 [facility] Comment on above: Performed By: #### C BC #### [facility] [address] [place] [address] Dr. Edilberto Holloway Monocytes/100 WBC (Bld) 4.7 % Normal 1.7-12.0 [facility] Comment on above: Performed By: #### C BC #### [facility] [address] [place] [address] Dr. Edilberto Holloway NEUT # 5.1 103/ul Normal 1.4-6.5 [facility] Comment on above: Performed By: #### C BC #### [facility] [address] [place] [address] Dr. Edilberto Holloway Neutrophils/100 WBC (Bld) 72.7 % Normal 43.0-75.0 [facility] Comment on above: Performed By: #### C BC #### [facility] [address] [place] [address] Dr. Edilberto Holloway Platelet mean volume (Bld) [Entitic vol] 9.6 fL Normal 9.5-13.5 [facility] Comment on above: Performed By: #### C BC #### [facility] [address] [place] [address] Dr. Edilberto Holloway PLT 247 103/ul Normal 150-450 [facility] Comment on above: Performed By: #### C BC #### [facility] [address] [place] [address] Dr. Edilberto Holloway RBC 5.23 106/ul Normal 4.70-6.10 [facility] Comment on above: Performed By: #### C BC #### [facility] [address] [place] [address] Dr. Edilberto Holloway WBC 7.0 103/ul Normal 4.0-11.0 [facility] Comment on above: Performed By: #### C BC #### [facility] [address] [place] [address] Dr. Edilberto Holloway PROF CHEM 8 (BAS METB)on Anion gap [Moles/Vol] 15.3 mmol/L Normal [facility] Comment on above: Performed By: #### B MP #### [facility] [address] [place] [address] Dr. Edilberto Holloway Calcium [Mass/Vol] 9.7 mg/dL Normal 8.5-10.1 [facility] Comment on above: Performed By: #### B MP #### [facility] [address] [place] [address] Dr. Edilberto Holloway Chloride [Moles/Vol] 106 mmol/L Normal 98-107 [facility] Comment on above: Performed By: #### B MP #### [facility] [address] [place], [place] [id number] Dr. Edilberto Holloway CO2 [Moles/Vol] 26.6 mmol/L Normal 21.0-32.0 [facility] Comment on above: Performed By: #### B MP #### [facility] [address] [place] [address] Dr. Edilberto Holloway Creatinine [Mass/Vol] 0.91 mg/dL Normal 0.70-1.30 [facility] Comment on above: Performed By: #### B MP #### [facility] [address] [place] [address] Dr. Edilberto Holloway EGFR-AF MONTENEGRIN >60 Normal >=60 [facility] Comment on above: Performed By: #### B MP #### [facility] [address] [place] [address] Dr. Edilberto Holloway EGFR-NON AF MONTENEGRIN >60 Normal >=60 [facility] Comment on above: Performed By: #### B MP #### [facility] [address] [place] [address] Dr. Edilberto Holloway Glucose [Mass/Vol] 104 mg/dL Normal 74-106 [facility] Comment on above: Performed By: #### B MP #### [facility] [address] [place] [address] Dr. Edilberto Holloway Potassium [Moles/Vol] 3.9 mmol/L Normal 3.5-5.1 [facility] Comment on above: Performed By: #### B MP #### [facility] [address] [place] [address] Dr. Edilberto Holloway Sodium [Moles/Vol] 144 mmol/L Normal 136-145 [facility] Comment on above: Performed By: #### B MP #### [facility] [address] [place] [address] Dr. Edilberto Holloway Urea nitrogen [Mass/Vol] 20.0 mg/dL Critically high 7.0-18.0 [facility] Comment on above: Performed By: #### B MP #### [facility] [address] [place] [address] Dr. Edilberto Holloway Urea nitrogen/Creatinine [Mass ratio] 22.0 mg/mg Normal [facility] Comment on above: Performed By: #### B MP #### [facility] [address] [place] [address] Dr. Edilberto Holloway INSULINon 12-21-2021 Insulin 30.7 uIU/mL Critically high 2.6-24.9 [facility] Comment on above: Performed By: #### I NSULIN #### [facility] [address] [place] [address] Dr. Edilberto Holloway T4, T3U, FTI LABCORPon 12-21 Free Thyroxine Index 1.8 Normal 1.2-4.9 [facility] Comment on above: Performed By: #### T HYLC #### [facility] [address] [place] [address] Dr. Edilberot Holloway T3 Uptake 29 % Normal 24-39 [facility] Comment on above: Performed By: #### T HYLC #### [facility] [address] [place] [address] Dr. Edilberto Holloway T4 [Mass/Vol] 6.1 ug/dL Normal 4.5-12.0 [facility] Comment on above: Performed By: #### T HYLC #### [facility] [address] [place] [address] Dr. Edilberto Holloway CBC AUTO DIFFon 12-20-2021 BASO # 0.0 103/ul Normal 0.0-0.1 [facility] Comment on above: Performed By: #### C BC #### [facility] [address] [place] [address] Dr. Edilberto Holloway Basophils/100 WBC (Bld) 0.5 % Normal 0.2-2.0 [facility] Comment on above: Performed By: #### C BC #### [facility] [address] [place] [address] Dr. Edilberto Holloway EO # 0.1 103/ul Normal 0.0-0.7 [facility] Comment on above: Performed By: #### C BC #### [facility] [address] [place] [address] Dr. Edilberto Holloway Eosinophils/100 WBC (Bld) 1.2 % Normal 0.9-7.0 [facility] Comment on above: Performed By: #### C BC #### [facility] [address] [place] [address] Dr. Edilberto Holloway Erythrocyte distribution width (RBC) [Ratio] 12.9 % Normal 11.0-15.0 [facility] Comment on above: Performed By: #### C BC #### [facility] [address] [place] [address] Dr. Edilberto Holloway Hematocrit (Bld) [Volume fraction] 43.5 % Normal 42.0-54.0 [facility] Comment on above: Performed By: #### C BC #### [facility] [address] [place] [address] Dr. Edilberto Holloway Hemoglobin (Bld) [Mass/Vol] 14.7 g/dL Normal 14.0-18.0 [facility] Comment on above: Performed By: #### C BC #### [facility] [address] [place] [address] Dr. Edilberto Holloway IG # 0.02 10e3/ul Normal 0.00-0.03 [facility] Comment on above: Performed By: #### C BC #### [facility] [address] [place] [address] Dr. Edilberto Holloway IG % 0.3 % Normal 0.0-0.5 [facility] Comment on above: Performed By: #### C BC #### [facility] [address] [place] [address] Dr. Edilberto Holloway LYMPH # 2.4 103/ul Normal 1.2-3.8 [facility] Comment on above: Performed By: #### C BC #### [facility] [address] [place] [address] Dr. Edilberto Holloway Lymphocytes/100 WBC (Bld) 41.6 % Normal 20.5-60.0 [facility] Comment on above: Performed By: #### C BC #### [facility] [address] [place] [address] Dr. Edilberto Holloway MANUAL DIFF REQ NO Normal [facility] Comment on above: Performed By: #### C BC #### [facility] [address] [place] [address] Dr. Edilberto Holloway MCH (RBC) [Entitic mass] 29.3 pg Normal 25.9-34.0 [facility] Comment on above: Performed By: #### C BC #### [facility] [address] [place] [address] Dr. Edilberto Holloway MCHC (RBC) [Mass/Vol] 33.8 g/dL Normal 29.9-35.2 [facility] Comment on above: Performed By: #### C BC #### [facility] [address] [place] [address] Dr. Edilberot Holloway MCV (RBC) [Entitic vol] 86.8 fL Normal 80.0-94.0 [facility] Comment on above: Performed By: #### C BC #### [facility] [address] [place] [address] Dr. Edilberto Holloway MONO # 0.4 103/ul Normal 0.3-0.8 [facility] Comment on above: Performed By: #### C BC #### [facility] [address] [place] [address] Dr. Edilberto Holloway Monocytes/100 WBC (Bld) 7.0 % Normal 1.7-12.0 [facility] Comment on above: Performed By: #### C BC #### [facility] [address] [place] [address] Dr. Edilberto Holloway NEUT # 2.9 103/ul Normal 1.4-6.5 [facility] Comment on above: Performed By: #### C BC #### [facility] [address] [place] [address] Dr. Edilberto Holloway Neutrophils/100 WBC (Bld) 49.4 % Normal 43.0-75.0 [facility] Comment on above: Performed By: #### C BC #### [facility] [address] [place] [address] Dr. Edilberto Holloway Platelet mean volume (Bld) [Entitic vol] 9.5 fL Normal 9.5-13.5 [facility] Comment on above: Performed By: #### C BC #### [facility] [address] [address] [address] Edilberto Holloway PLT 239 103/ul Normal 150-450 [facility] Comment on above: Performed By: #### C BC #### [facility] [address] [id number] [address] Edilberto Holloway RBC 5.01 106/ul Normal 4.70-6.10 [facility] Comment on above: Performed By: #### C BC #### [facility] [address] [place], [place] [address] Dr. Edilberto Holloway WBC 5.8 103/ul Normal 4.0-11.0 [facility] Comment on above: Performed By: #### C BC #### [facility] [address] [id number] Edilberto Holloway ECHOCARDIO M/2D COMPLETEon 0 12-20-2021 ECHOCARDIO M/2D COMPLETE Patient: CLIFFORD JOE Exam Date: 12/20/2021 : 2000 Gender:M Ordering : DR SERINA ZARATE . Admission #: [id number] Family : Order #: [id number] CLICK HERE TO VIEW EXAM ECHOCARDIOGRAM REPORT PROCEDURE: CARDIO PULMONARY ECHOCARDIO M/2D COMP INDICATIONS: Chest pain COMPARISON: None. DESCRIPTION: COMPLETE ECHOCARDIOGRAM Real-time transthoracic echocardiography with 2D, M-mode, spectral and color flow Doppler performed. QUALITY: Technical quality was good. LEFT VENTRICLE: Normal chamber size. Normal left ventricular wall thickness. LV EF: Global left ventricular systolic function is normal. Calculated left ventricular ejection fraction is 64% DIASTOLIC: Normal diastolic function. ATRIAL SEPTUM: Inadequately seen. LEFT ATRIUM: Normal chamber size. RIGHT ATRIUM: Normal chamber size. RIGHT VENTRICLE: Normal chamber size. Normal right ventricular systolic function. TRICUSPID VALVE: Normal mobility and thickness. No stenosis with trivial regurgitation. No evidence of pulmonary hypertension. RVSP 24mmHg. MITRAL VALVE: No evidence of mitral valve stenosis. There is no mitral annular calcification. Trivial mitral regurgitation. AORTIC VALVE: Normal trileaflet appearance. No visible sclerosis. Normal leaflet mobility. No evidence of aortic valve stenosis. No aortic regurgitation. AORTIC ROOT: Normal diameter and appearance. PULMONIC VALVE: Normal thickness and mobility. No stenosis. No regurgitation. PERICARDIUM: No evidence of pericardial effusion. IVC: Collapses with inspirations. Normal size. CONCLUSION: Essentially normal echocardiogram Dictated by: Yfn Das M.D. on 12/20/2021 at 13:08 Approved by: Yfn Das M.D. on 12/20/2021 at 13:11 Normal [facility] LIPID PROFILEon 12-20-2021 CHOL-HDL RATIO NORM SEE BELOW Normal [facility] Comment on above: Result Comment: 3.3 - 4.4 LOW RISK 4.4 - 7.1 AVERAGE RISK 7.1 - 11.0 MODERATE RISK >11.0 HIGH RISK Performed By: #### C MP, TSH, LIPID #### [facility] [address] [address] [address] Edilberto Holloway Cholesterol [Mass/Vol] 193 mg/dL Critically high 109-189 [facility] Comment on above: Performed By: #### C MP, TSH, LIPID #### [facility] [address] [address] [address] Edilberto Holloway Cholesterol in HDL [Mass/Vol] 50 mg/dL Normal 23-55 [facility] Comment on above: Performed By: #### C MP, TSH, LIPID #### [facility] [address] [address] [address] Edilberto Holloway Cholesterol in LDL [Mass/Vol] 122.0 mg/dL Critically high 48.0-117.0 [facility] Comment on above: Performed By: #### C MP, TSH, LIPID #### [facility] [address] [address] [address] Edilberto Holloway Cholesterol.total/Ch olesterol in HDL [Mass ratio] 3.9 {ratio} Normal [facility] Comment on above: Performed By: #### C MP, TSH, LIPID #### [facility] [address] [address] [address] Edilberto Holloway HDL NORMAL > or = 60 mg/dl - LOW CARDIOVASCULAR RISK <40 mg/dl - HIGH CARDIOVASCULAR RISK Normal [facility] Comment on above: Performed By: #### C MP, TSH, LIPID #### [facility] [address] [address] [address] Edilberto Holloway LDL CALC NORMAL SEE BELOW Normal [facility] Comment on above: Result Comment: <100 mg/dl OPTIMAL 100 - 129 mg/dl NEAR OR ABOVE OPTIMAL 130 - 159 mg/dl BORDERLINE HIGH 160 - 189 mg/dl HIGH >190 mg/dl VERY HIGH Performed By: #### C MP, TSH, LIPID #### [facility] [address] [address] [address] Edilberto oHlloway Triglyceride [Mass/Vol] 105 mg/dL Normal 50-183 [facility] Comment on above: Performed By: #### C MP, TSH, LIPID #### [facility] [address] [place] [address] Dr. Edilberto Holloway VLDL CALC 21.0 mg/dL Normal [facility] Comment on above: Performed By: #### C MP, TSH, LIPID #### [facility] [address] [address] [address] Edilberto Holloway PROF 14(COMP METB)on 022 Albumin [Mass/Vol] 4.1 g/dL Normal 3.4-5.0 [facility] Comment on above: Performed By: #### C MP, TSH, LIPID #### [facility] [address] [place] [address] Dr. Edilberto Holloway Albumin/Globulin [Mass ratio] 1.1 {ratio} Normal [facility] Comment on above: Performed By: #### C MP, TSH, LIPID #### [facility] [address] [address] [address] Edilberto Holloway ALP [Catalytic activity/Vol] 78 U/L Normal 46-116 [facility] Comment on above: Performed By: #### C MP, TSH, LIPID #### [facility] [address] [address] [address] Edilberto Holloway ALT [Catalytic activity/Vol] 58 U/L Normal 16-63 [facility] Comment on above: Performed By: #### C MP, TSH, LIPID #### [facility] [address] [address] [address] Edilberto Holloway Anion gap [Moles/Vol] 11.1 mmol/L Normal [facility] Comment on above: Performed By: #### C MP, TSH, LIPID #### [facility] [address] [address] [address] Edilberto Holloway AST [Catalytic activity/Vol] 21 U/L Normal 15-37 [facility] Comment on above: Performed By: #### C MP, TSH, LIPID #### [facility] [address] [address] [address] Edilberto Holloway Bilirubin [Mass/Vol] 0.6 mg/dL Normal 0.2-1.0 [facility] Comment on above: Performed By: #### C MP, TSH, LIPID #### [facility] [address] [place] [address] Dr. Edilberto Holloway Calcium [Mass/Vol] 9.2 mg/dL Normal 8.5-10.1 [facility] Comment on above: Performed By: #### C MP, TSH, LIPID #### [facility] [address] [address] [address] Edilberto Holloway Chloride [Moles/Vol] 103 mmol/L Normal 98-107 [facility] Comment on above: Performed By: #### C MP, TSH, LIPID #### [facility] [address] [address] [address] Edilberto Holloway CO2 [Moles/Vol] 28.0 mmol/L Normal 21.0-32.0 [facility] Comment on above: Performed By: #### C MP, TSH, LIPID #### [facility] [address] [address] [address] Edilberto Holloway Creatinine [Mass/Vol] 0.94 mg/dL Normal 0.70-1.30 [facility] Comment on above: Performed By: #### C MP, TSH, LIPID #### [facility] [address] [address] [address] Edilberto Holloway EGFR-AF MONTENEGRIN >60 Normal >=60 [facility] Comment on above: Performed By: #### C MP, TSH, LIPID #### [facility] [address] [address] [address] Edilberto Holloway EGFR-NON AF MONTENEGRIN >60 Normal >=60 [facility] Comment on above: Performed By: #### C MP, TSH, LIPID #### [facility] [address] [address] [address] Edilberto Holloway Globulin (S) [Mass/Vol] 3.6 g/dL Normal [facility] Comment on above: Performed By: #### C MP, TSH, LIPID #### [facility] [address] [address] [address] Edilberto Holloway Glucose [Mass/Vol] 99 mg/dL Normal 74-106 [facility] Comment on above: Performed By: #### C MP, TSH, LIPID #### [facility] [address] [address] [address] Edilberto Holloway Potassium [Moles/Vol] 4.1 mmol/L Normal 3.5-5.1 [facility] Comment on above: Performed By: #### C MP, TSH, LIPID #### [facility] [address] [address] [address] Edilberto Holloway Protein [Mass/Vol] 7.7 g/dL Normal 6.4-8.2 [facility] Comment on above: Performed By: #### C MP, TSH, LIPID #### [facility] [address] [address] [address] Edilberto Holloway Sodium [Moles/Vol] 138 mmol/L Normal 136-145 [facility] Comment on above: Performed By: #### C MP, TSH, LIPID #### [facility] [address] [address] [address] Edilberto Holloway Urea nitrogen [Mass/Vol] 17.0 mg/dL Normal 6.4-19.3 [facility] Comment on above: Performed By: #### C MP, TSH, LIPID #### [facility] [address] [address] [address] Edilberto Holloway Urea nitrogen/Creatinine [Mass ratio] 18.1 mg/mg Normal [facility] Comment on above: Performed By: #### C MP, TSH, LIPID #### [facility] [address] [place] [address] Dr. Edilberto Holloway SED RATE WESTERGRENon 2021 SED RATE 6 mm/hr Normal <=15 [facility] Comment on above: Performed By: #### C BC #### [facility] [address] [place] [address] Dr. Edilberto Holloway TSHon 12-20-2021 TSH 2.704 uIU/mL Normal 0.516-4.130 [facility] Comment on above: Performed By: #### C MP, TSH, LIPID #### [facility] [address] [place] [address] Dr. Edilberto Holloway CBC AUTO DIFFon 12-09-2021 BASO # 0.0 103/ul Normal 0.0-0.1 [facility] Comment on above: Performed By: #### C BC #### [facility] [address] [place] [address] Dr. Edilberto Holloway Basophils/100 WBC (Bld) 0.3 % Normal 0.2-2.0 [facility] Comment on above: Performed By: #### C BC #### [facility] [address] [place] [address] Dr. Edilberto Holloway EO # 0.1 103/ul Normal 0.0-0.7 [facility] Comment on above: Performed By: #### C BC #### [facility] [address] [place] [address] Dr. Edilberto Holloway Eosinophils/100 WBC (Bld) 0.9 % Normal 0.9-7.0 [facility] Comment on above: Performed By: #### C BC #### [facility] [address] [place] [address] Dr. Edilberto Holloway Erythrocyte distribution width (RBC) [Ratio] 12.8 % Normal 11.0-15.0 [facility] Comment on above: Performed By: #### C BC #### [facility] [address] [place] [address] Dr. Edilberto Holloway Hematocrit (Bld) [Volume fraction] 42.3 % Normal 42.0-54.0 [facility] Comment on above: Performed By: #### C BC #### [facility] [address] [place] [address] Dr. Edilberto Holloway Hemoglobin (Bld) [Mass/Vol] 14.5 g/dL Normal 14.0-18.0 [facility] Comment on above: Performed By: #### C BC #### [facility] [address] [place] [address] Dr. Edilberto Holloway IG # 0.01 10e3/ul Normal 0.00-0.03 [facility] Comment on above: Performed By: #### C BC #### [facility] [address] [place] [address] Dr. Edilberto Holloway IG % 0.2 % Normal 0.0-0.5 [facility] Comment on above: Performed By: #### C BC #### [facility] [address] [place] [address] Dr. Edilberto Holloway LYMPH # 2.0 103/ul Normal 1.2-3.8 [facility] Comment on above: Performed By: #### C BC #### [facility] [address] [place] [address] Dr. Edilberto Holloway Lymphocytes/100 WBC (Bld) 30.8 % Normal 20.5-60.0 [facility] Comment on above: Performed By: #### C BC #### [facility] [address] [place] [address] Dr. Edilberto Holloway MANUAL DIFF REQ NO Normal [facility] Comment on above: Performed By: #### C BC #### [facility] [address] [place] [address] Dr. Edilberto Holloway MCH (RBC) [Entitic mass] 29.6 pg Normal 25.9-34.0 [facility] Comment on above: Performed By: #### C BC #### [facility] [address] [place] [address] Dr. Edilberto Holloway MCHC (RBC) [Mass/Vol] 34.3 g/dL Normal 29.9-35.2 [facility] Comment on above: Performed By: #### C BC #### [facility] [address] [place] [address] Dr. Edilberto Holloway MCV (RBC) [Entitic vol] 86.3 fL Normal 80.0-94.0 [facility] Comment on above: Performed By: #### C BC #### [facility] [address] [place] [address] Dr. Edilberto Holloway MONO # 0.4 103/ul Normal 0.3-0.8 [facility] Comment on above: Performed By: #### C BC #### [facility] [address] [place] [address] Dr. Edilberto Holloway Monocytes/100 WBC (Bld) 6.2 % Normal 1.7-12.0 [facility] Comment on above: Performed By: #### C BC #### [facility] [address] [place] [address] Dr. Edilberto Holloway NEUT # 4.1 103/ul Normal 1.4-6.5 [facility] Comment on above: Performed By: #### C BC #### [facility] [address] [place] [address] Dr. Edilberto Holloway Neutrophils/100 WBC (Bld) 61.6 % Normal 43.0-75.0 [facility] Comment on above: Performed By: #### C BC #### [facility] [address] [place] [address] Dr. Edilberto Holloway Platelet mean volume (Bld) [Entitic vol] 9.8 fL Normal 9.5-13.5 [facility] Comment on above: Performed By: #### C BC #### [facility] [address] [place] [address] Dr. Edilberto Holloway PLT 237 103/ul Normal 150-450 [facility] Comment on above: Performed By: #### C BC #### [facility] [address] [place] [address] Dr. Edilberto Holloway RBC 4.90 106/ul Normal 4.70-6.10 [facility] Comment on above: Performed By: #### C BC #### [facility] [address] [place] [address] Dr. Edilberto Holloway WBC 6.6 103/ul Normal 4.0-11.0 [facility] Comment on above: Performed By: #### C BC #### [facility] [address] [place] [address] Dr. Edilberto Holloway PROF 14(COMP METB)on 022 Albumin [Mass/Vol] 4.2 g/dL Normal 3.4-5.0 [facility] Comment on above: Performed By: #### C BC #### [facility] [address] [place] [address] Dr. Edilberto Holloway Albumin/Globulin [Mass ratio] 1.2 {ratio} Normal [facility] Comment on above: Performed By: #### C BC #### [facility] [address] [place] [address] Dr. Edilberto Holloway ALP [Catalytic activity/Vol] 74 U/L Normal 46-116 [facility] Comment on above: Performed By: #### C BC #### [facility] [address] [place] [address] Dr. Edilberto Holloway ALT [Catalytic activity/Vol] 46 U/L Normal 16-63 [facility] Comment on above: Performed By: #### C BC #### [facility] [address] [place] [address] Dr. Edilberto Holloway Anion gap [Moles/Vol] 12.7 mmol/L Normal [facility] Comment on above: Performed By: #### C BC #### [facility] [address] [place] [address] Dr. Edilberto Holloway AST [Catalytic activity/Vol] 18 U/L Normal 15-37 [facility] Comment on above: Performed By: #### C BC #### [facility] [address] [place] [address] Dr. Edilberto Holloway Bilirubin [Mass/Vol] 0.5 mg/dL Normal 0.2-1.0 [facility] Comment on above: Performed By: #### C BC #### [facility] [address] [place] [address] Dr. Edilberto Holloway Calcium [Mass/Vol] 9.0 mg/dL Normal 8.5-10.1 [facility] Comment on above: Performed By: #### C BC #### [facility] [address] [place] [address] Dr. Edilberto Holloway Chloride [Moles/Vol] 103 mmol/L Normal 98-107 [facility] Comment on above: Performed By: #### C BC #### [facility] [address] [place] [address] Dr. Edilberto Holloway CO2 [Moles/Vol] 27.7 mmol/L Normal 21.0-32.0 [facility] Comment on above: Performed By: #### C BC #### [facility] [address] [place] [address] Dr. Edilberto Holloway Creatinine [Mass/Vol] 1.09 mg/dL Normal 0.70-1.30 [facility] Comment on above: Performed By: #### C BC #### [facility] [address] [place] [address] Dr. Edilberto Holloway EGFR-AF MONTENEGRIN >60 Normal >=60 [facility] Comment on above: Performed By: #### C BC #### [facility] [address] [place] [address] Dr. Edilberto Holloway EGFR-NON AF MONTENEGRIN >60 Normal >=60 [facility] Comment on above: Performed By: #### C BC #### [facility] [address] [place] [address] Dr. Edilberto Holloway Globulin (S) [Mass/Vol] 3.4 g/dL Normal [facility] Comment on above: Performed By: #### C BC #### [facility] [address] [place] [address] Dr. Edilberto Holloway Glucose [Mass/Vol] 144 mg/dL Critically high 74-106 [facility] Comment on above: Performed By: #### C BC #### [facility] [address] [place] [address] Dr. Edilberto Holloway Potassium [Moles/Vol] 3.4 mmol/L Critically low 3.5-5.1 [facility] Comment on above: Performed By: #### C BC #### [facility] [address] [address] [address] Edilberto Holloway Protein [Mass/Vol] 7.6 g/dL Normal 6.4-8.2 [facility] Comment on above: Performed By: #### C BC #### [facility] [address] [address] [address] Edilberto Holloway Sodium [Moles/Vol] 140 mmol/L Normal 136-145 [facility] Comment on above: Performed By: #### C BC #### [facility] [address] [address] [address] Edilberto Holloway Urea nitrogen [Mass/Vol] 18.0 mg/dL Normal 6.4-19.3 [facility] Comment on above: Performed By: #### C BC #### [facility] [address] [place] [address] Dr. Edilberto Holloway Urea nitrogen/Creatinine [Mass ratio] 16.5 mg/mg Normal [facility] Comment on above: Performed By: #### C BC #### [facility] [address] [place] [address] Dr. Edilberto Holloway TROPONIN, HIGH SENSITIVITYon 12-09-2021 HSTROP <4.0 Normal 4.0-76.1 [facility] Comment on above: Result Comment: CUT- OFF POINTS HAVE BEEN ESTABLISHED BASED ON THE FOURTH UNIVERSAL DEFINITIONS OF MYOCARDIAL INFARCTION. THE UPPER REFERENCE LIMIT (URL) OF TROPONIN, DEFINED THE 99TH PERCENTILE OF cTnI DISTRIBUTION IN A REFERENCE POPULATION, HAS BEEN CONFIRMED THE DECISION THRESHOLD FOR [place] DIAGNOSIS. Performed By: #### C MP, TSH, LIPID #### [facility] [address] [address] [address] Edilberto Holloway C REACTIVE PROTEINon 021 CRP [Mass/Vol] 0.2 mg/dL Normal <=0.5 [facility] Comment on above: Order Comment: Colle cted by Care Area? N Performed By: #### F ER, LDH, PROCAL, CRP, CM #### [facility] CLIA # [id number] [address] [place] [address] CHEST - PORTABLEon CHEST - PORTABLE [facility] Name: CLIFFORD JOE : 2000 Unit #: [id number] Age: 20 Attending Physician: Pt Location: ER Date of Service: 05/24/20 CHEST - PORTABLE HISTORY: Shortness of breath. Headaches. Body aches. Shortness of breath Study: Portable chest dated 05/24/2020. 4:26 a.m. Findings: The heart size is normal. Minimal patchy pneumonitis is present in the left base. The rest of the lungs are clear. IMPRESSION: Minimal patchy pneumonitis left lung base likely viral. EXAM/ORDER VERIFICATION: Y PT/FAMILY VERBALIZES UNDERSTANDING OF EXAM Y PT SHIELDED Y Is pt ? LMP TECH INITIALS KW COMMENTS Electronically Signed by: JUDI WOMACK M.D. 05/24/2038 JUDI WOMACK M.D. Date Dict: 05/24/20833 JUDI WOMACK M.D. Date Trans: 05/24/20833 [facility] [id number] cc: HAROON NAYLOR M.D.-SERINA UGARTE M.D. Normal [facility] COMPLETE BLOOD COUNT W/DIFFo n 05-24-2020 Basophils (Bld) [#/Vol] 0.0 10'3/uL Normal 0.0-0.2 [facility] Comment on above: Order Comment: Colle cted by Care Area? N Performed By: #### D DIMER, PT #### [facility] CLIA # [id number] [address] [place] [address] Basophils/100 WBC (Bld) 0.4 % Normal 0.2-2.0 [facility] Comment on above: Order Comment: Colle cted by Care Area? N Performed By: #### D DIMER, PT #### [facility] CLIA # [id number] [address] [place] [address] Eosinophils (Bld) [#/Vol] 0.0 10'3/uL Normal 0.0-0.4 [facility] Comment on above: Order Comment: Colle cted by Care Area? N Performed By: #### D DIMER, PT #### [facility] CLIA # [id number] [address] [place] [address] Eosinophils/100 WBC (Bld) 0.6 % Normal 0.0-6.3 [facility] Comment on above: Order Comment: Colle cted by Care Area? N Performed By: #### D DIMER, PT #### [facility] CLIA # [id number] [address] [place] [address] Erythrocyte distribution width (RBC) [Ratio] 12.9 % Normal 11.7-15.5 [facility] Comment on above: Order Comment: Colle cted by Care Area? N Performed By: #### D DIMER, PT #### [facility] CLIA # [id number] [address] [place] [address] Hematocrit (Bld) [Volume fraction] 42.3 % Normal 39.8-49.4 [facility] Comment on above: Order Comment: Colle cted by Care Area? N Performed By: #### D DIMER, PT #### [facility] CLIA # [id number] [address] [place] [address] Hemoglobin (Bld) [Mass/Vol] 14.4 g/dL Normal 13.5-16.8 [facility] Comment on above: Order Comment: Colle cted by Care Area? N Performed By: #### D DIMER, PT #### [facility] CLIA # [id number] [address] [place] [address] Lymphocytes (Bld) [#/Vol] 0.6 10'3/uL Normal 0.4-3.6 [facility] Comment on above: Order Comment: Colle cted by Care Area? N Performed By: #### D DIMER, PT #### [facility] CLIA # [id number] [address] [place] [address] Lymphocytes/100 WBC (Bld) 9.4 % Low 13.3-42.4 [facility] Comment on above: Order Comment: Colle cted by Care Area? N Performed By: #### D DIMER, PT #### [facility] CLIA # [id number] [address] [place] [address] MCH (RBC) [Entitic mass] 34.0 g/dL Normal 33.0-35.2 [facility] Comment on above: Order Comment: Colle cted by Care Area? N Performed By: #### D DIMER, PT #### [facility] CLIA # [id number] [address] [place] [address] MCH (RBC) [Entitic mass] 28.6 pg Normal 27.9-33.7 [facility] Comment on above: Order Comment: Colle cted by Care Area? N Performed By: #### D DIMER, PT #### [facility] CLIA # [id number] [address] [place] [address] MCV (RBC) [Entitic vol] 83.9 fL Normal 83.9-97.0 [facility] Comment on above: Order Comment: Colle cted by Care Area? N Performed By: #### D DIMER, PT #### [facility] CLIA # [id number] [address] [place] [address] Monocytes (Bld) [#/Vol] 0.6 10'3/uL Normal 0.3-1.0 [facility] Comment on above: Order Comment: Colle cted by Care Area? N Performed By: #### D DIMER, PT #### [facility] CLIA # [id number] [address] [place] [address] Monocytes/100 WBC (Bld) 8.3 % Normal 5.2-13.6 [facility] Comment on above: Order Comment: Colle cted by Care Area? N Performed By: #### D DIMER, PT #### [facility] CLIA # [id number] [address] [place] [address] Neutrophils (Bld) [#/Vol] 5.4 10'3/uL Normal 2.2-6.3 [facility] Comment on above: Order Comment: Colle cted by Care Area? N Performed By: #### D DIMER, PT #### [facility] CLIA # [id number] [address] [place] [address] Neutrophils/100 WBC (Bld) 81.3 % High 43.5-74.5 [facility] Comment on above: Order Comment: Colle cted by Care Area? N Performed By: #### D DIMER, PT #### [facility] CLIA # [id number] [address] [place] [address] Platelet mean volume (Bld) [Entitic vol] 10.0 fL Normal 7.2-10.4 [facility] Comment on above: Order Comment: Colle cted by Care Area? N Performed By: #### D DIMER, PT #### [facility] CLIA # [id number] [address] [place] [address] Platelets (Bld) [#/Vol] 218 10'3/uL Normal 144-327 [facility] Comment on above: Order Comment: Colle cted by Care Area? N Performed By: #### D DIMER, PT #### [facility] CLIA # [id number] [address] [place] [address] RBC (Bld) [#/Vol] 5.04 10'6/uL Normal 4.24-5.64 [facility] Comment on above: Order Comment: Colle cted by Care Area? N Performed By: #### D DIMER, PT #### [facility] CLIA # [id number] [address] [place] [address] WBC (Bld) [#/Vol] 6.7 10'3/uL Normal 4.1-10.2 [facility] Comment on above: Order Comment: Colle cted by Care Area? N Performed By: #### D DIMER, PT #### [facility] CLIA # [id number] [address] [place] [address] COMPREHENSIVE METABOLIC PROF on 05-24-2020 GFR/1.73 sq M.predicted MDRD (S/P/Bld) [Vol rate/Area] mL/min/{1.73_m2} Normal ml/min/1.73m2 [facility] Comment on above: Order Comment: Colle cted by Care Area? N Result Comment: GFR values >60 are not clinically significant. Performed By: #### F ER, LDH, PROCAL, CRP, CM #### [facility] CLIA # [id number] [address] [place] [address] Albumin [Mass/Vol] 4.9 g/dL High 3.2-4.5 [facility] Comment on above: Order Comment: Colle cted by Care Area? N Performed By: #### F ER, LDH, PROCAL, CRP, CM #### [facility] CLIA # [id number] [address] [place] [address] ALP [Catalytic activity/Vol] 73 U/L Normal <750 [facility] Comment on above: Order Comment: Colle cted by Care Area? N Performed By: #### F ER, LDH, PROCAL, CRP, CM #### [facility] CLIA # [id number] [address] [place] [address] ALT/SGPT 22 U/L Normal 0-55 [facility] Comment on above: Order Comment: Colle cted by Care Area? N Performed By: #### F ER, LDH, PROCAL, CRP, CM #### [facility] CLIA # [id number] [address] [facility] [place] [address] Anion gap [Moles/Vol] 13 mmol/L Normal 5-13 [facility] Comment on above: Order Comment: Colle cted by Care Area? N Performed By: #### F ER, LDH, PROCAL, CRP, CM #### [facility] CLIA # [id number] [address] [place] [address] AST/SGOT 20 U/L Normal 5-34 [facility] Comment on above: Order Comment: Colle cted by Care Area? N Performed By: #### F ER, LDH, PROCAL, CRP, CM #### [facility] CLIA # [id number] [address] [place] [address] Bilirubin [Mass/Vol] 0.6 mg/dL Normal 0.0-1.0 [facility] Comment on above: Order Comment: Colle cted by Care Area? N Performed By: #### F ER, LDH, PROCAL, CRP, CM #### [facility] CLIA # [id number] [address] [place] [address] Calcium [Mass/Vol] 9.4 mg/dL Normal 8.4-10.2 [facility] Comment on above: Order Comment: Colle cted by Care Area? N Performed By: #### F ER, LDH, PROCAL, CRP, CM #### [facility] CLIA # [id number] [address] [place] [address] Chloride [Moles/Vol] 104 mmol/L Normal 98-107 [facility] Comment on above: Order Comment: Colle cted by Care Area? N Performed By: #### F ER, LDH, PROCAL, CRP, CM #### [facility] CLIA # [id number] [address] [place] [address] CO2 [Moles/Vol] 23 mmol/L Normal 22-29 [facility] Comment on above: Order Comment: Colle cted by Care Area? N Performed By: #### F ER, LDH, PROCAL, CRP, CM #### [facility] CLIA # [id number] [address] [place] [address] Creatinine [Mass/Vol] 1.10 mg/dL Normal 0.72-1.25 [facility] Comment on above: Order Comment: Colle cted by Care Area? N Performed By: #### F ER, LDH, PROCAL, CRP, CM #### [facility] CLIA # [id number] [address] [place] [address] Glucose [Mass/Vol] 98 mg/dL Normal 70-99 [facility] Comment on above: Order Comment: Colle cted by Care Area? N Performed By: #### F ER, LDH, PROCAL, CRP, CM #### [facility] CLIA # [id number] [address] [place] [address] Potassium [Moles/Vol] 3.8 mmol/L Normal 3.5-5.1 [facility] Comment on above: Order Comment: Colle cted by Care Area? N Performed By: #### F ER, LDH, PROCAL, CRP, CM #### [facility] CLIA # [id number] [address] [place] [address] Protein [Mass/Vol] 8.0 g/dL Normal 6.4-8.2 [facility] Comment on above: Order Comment: Colle cted by Care Area? N Performed By: #### F ER, LDH, PROCAL, CRP, CM #### [facility] CLIA # [id number] [address] [place] [address] Sodium [Moles/Vol] 140 mmol/L Normal 136-145 [facility] Comment on above: Order Comment: Colle cted by Care Area? N Performed By: #### F ER, LDH, PROCAL, CRP, CM #### [facility] CLIA # [id number] [address] [place] [address] Urea nitrogen [Mass/Vol] 26 mg/dL High 7-18 [facility] Comment on above: Order Comment: Colle cted by Care Area? N Performed By: #### F ER, LDH, PROCAL, CRP, CM #### [facility] CLIA # [id number] [address] [place] [address] D-DIMERon 05-24-2020 D-DIMER 0.19 mg/L FEU Normal <0.50 [facility] Comment on above: Order Comment: Colle cted by Care Area? N Result Comment: RESULTS OF THIS TEST SHOULD ALWAYS BE INTERPRETED IN CONJUNCTION WITH THE PATIENT'S MEDICAL HISTORY, CLINICAL PRESENTATION AND OTHER FINDINGS. CLINICAL DIAGNOSIS SHOULD NOT BE BASED ON THE RESULT OF INNOVANCE D-DIMER ALONE. Performed By: #### D DIMER, PT #### [facility] CLIA # [id number] [address] [place] [address] ERYTHROCYTE SEDIMENTATION RA Geeta 05-24-2020 ESR (Bld) [Velocity] 5 mm/h Normal 0-15 [facility] Comment on above: Order Comment: Colle cted by Care Area? N Performed By: #### D DIMER, PT #### [facility] CLIA # [id number] [address] [place] [address] FERRITINon 05-24-2020 Ferritin [Mass/Vol] 8.7 ng/mL Low 26-388 [facility] Comment on above: Order Comment: Colle cted by Care Area? N Performed By: #### F ER, LDH, PROCAL, CRP, CM #### [facility] CLIA # [id number] [address] [place] [place] [address] HISTORY PRESENT ILLNESSon HISTORY PRESENT ILLNESS Name: CLIFFORD JOE : 2000 Unit #: [id number] Age: 20 Family Physician: Pt Location: ER Arrival Date 05/24/20358 ER Physician: HAROON NAYLOR M.D.-ER [facility] EMERGENCY ROOM History of Present Illness History of Present Illness Time Seen: 04:09 History of Present Illness The patient is a 20 year old male who presented to the Emergency Department with the complaint of illness. 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 He states he is chilled to the point where cannot get warm. He is significantly nauseated. He has a sore throat and dry cough. No vomiting or diarrhea. He denies any sputum production or hemoptysis. He denies any chronic respiratory problems. He has a history of hypothyroidism Past Medical History Past Medical History Additional Medical History: Hypothyroid Family History Significant Family Medical Hx: No Significant History Social History Marital Status Allergies Allergies: Coded Allergies: No Known Allergies (Unverified , 05/24/20) Home Medications Home Medications See Reconcile Meds Review of Systems Review of Systems All Other Systems: Reviewed and Negative Constitutional: See HPI Skin: Denies: Change in color, Rash ENT: See HPI Respiratory: See HPI Cardiovascular: Lightheadedness; Denies: Chest pain Gastrointestinal: See HPI Musculoskeletal: Denies: Back pain, Muscle cramps Neurological: Headache Endocrine: See HPI, Other - Last lab evaluation was 9 months ago Physical Exam Physical Exam Initial Vital Signs Vital Signs Date Time Temp Pulse Resp B/P (MAP) Pulse Ox O2 Delivery O2 Flow Rate FiO2 05/24/20 04:16 100.4 116 18 131/65 (87) 98 Room Air General Appearance: No apparent distress HEENT: No acute lesions: eyelids, No acute lesions: face, Pharyngeal erythema - Mild with mild lymphoid hyperplasia no uvular edema or soft palate petechiae no coating of the tongue. Mucous membranes tacky Neck: Normal Inspection, No Nodes, Trachea Midline, Other - Tender over the jugulodigastric lymph nodes Respiratory: Normal inspection, Easy effort, No rales, No rhonchi, No wheezes, Decreased breath sounds, Other - Deep breath induces bronchitic cough Cardiovascular: No murmur, Tachycardia Gastrointestinal: Soft, Active bowel sounds Back: Normal inspection, No CVA tenderness, No vertebral tenderness Musculoskeletal: No calf tenderness, No edema Neurologic/Psychiatr ic: Alert, Intact language/cognition Skin: Normal color, Warm/dry Course of Treatment Nursing Notes Assessments Nursing Notes/Assessments: Reviewed Medical Decision Making Medical Decision Making Patient with signs and symptoms of Covid 19 infection. Plan for imaging lab IV fluids anti tussive antiemetic Medications Medications given in ED Medications Given in ED Sodium Chloride 1,000 ml @ 999 mls/hr Q1H1M IV Last administered on 05/24/20at 04:33; Start 05/24/20 at 04:30; Stop 05/24/20 at 05:30; Status DC Benzonatate (Tessalon Perles) 100 mg ONCE ED ONCE PO Last administered on 05/24/20at 04:31; Start 05/24/20 at 04:30; Stop 05/24/20 at 04:31; Status DC Ondansetron HCl (Zofran) 4 mg ONCE ED ONCE IV PUSH Last administered on 05/24/20at 04:31; Start 05/24/20 at 04:30; Stop 05/24/20 at 04:31; Status DC Acetaminophen (Tylenol) 1,000 mg ONCE ED ONCE PO Last administered on 05/24/20at 04:32; Start 05/24/20 at 04:30; Stop 05/24/20 at 04:31; Status DC Sodium Chloride (0.9% Sodium Chloride) 1-4 SYRINGES (3 ML) PRN PRN IV PUSH FLUSH Last administered on 05/24/20at 04:36; Start 05/24/20 at 04:35; Stop 05/24/20 at 05:54; Status DC Laboratory Labs Laboratory Tests Test 05/24/20 04:21 White Blood Count 6.7 10'3/uL (4.1-10.2) Red Blood Count 5.04 10'6/uL (4.24-5.64) Hemoglobin 14.4 g/dL (13.5-16.8) Hematocrit 42.3 % (39.8-49.4) Mean Corpuscular Volume 83.9 fL (83.9-97.0) Mean Corpuscular Hemoglobin 28.6 pg (27.9-33.7) Mean Corpuscular Hgb Concent Diff 34.0 g/dL (33.0-35.2) Red Cell Distribution Width 12.9 % (11.7-15.5) Platelet Count 218 10'3/uL (144-327) Mean Platelet Volume 10.0 fL (7.2-10.4) Neutrophils (%) (Auto) 81.3 % (43.5-74.5) Absolute Neutrophils (auto) 5.4 10'3/uL (2.2-6.3) Absolute Lymphocytes (auto) 0.6 10'3/uL (0.4-3.6) Absolute Monocytes (auto) 0.6 10'3/uL (0.3-1.0) Absolute Eosinophils (auto) 0.0 10'3/uL (0.0-0.4) Absolute Basophils (auto) 0.0 10'3/uL (0.0-0.2) Lymphocytes % 9.4 % (13.3-42.4) Monocytes % 8.3 % (5.2-13.6) Eosinophils % 0.6 % (0.0-6.3) Basophils % 0.4 % (0.2-2.0) Erythrocyte Sedimentation Rate 5 mm/hr (0-15) Prothrombin Time 11.3 SECONDS (9.54-10.90) Prothromb Time International Ratio 1.05 (0.86-1.15) D-Dimer Quantitative (PE/DVT) 0.19 mg/L FEU (<0.50) Sodium Level 140 mmol/L (136-145) Potassium Level 3.8 mmol/L (3.5-5.1) Chloride Level 104 mmol/L (98-107) Carbon Dioxide Level 23 mmol/L (22-29) Anion Gap 13 mEq/L (5-13) Blood Urea Nitrogen 26 mg/dL (7-18) Creatinine 1.10 mg/dL (0.72-1.25) Estimat Glomerular Filtration Rate > 60 (ml/min/1.73m2) Glucose Level 98 mg/dL (70-99) Calcium Level 9.4 mg/dL (8.4-10.2) Ferritin 8.7 ng/mL (26-388) Total Bilirubin 0.6 mg/dL (0.0-1.0) Aspartate Amino Transf (AST/SGOT) 20 U/L (5-34) Alanine Aminotransferase (ALT/SGPT) 22 U/L (0-55) Alkaline Phosphatase 73 U/L (<750) Lactate Dehydrogenase 215 U/L (125-220) C-Reactive Protein 0.2 mg/dL (<=0.5) Total Protein 8.0 g/dL (6.4-8.2) Albumin 4.9 g/dL (3.2-4.5) Procalcitonin 0.03 ng/mL (<0.50) Microbiology Date/Time Source Procedure Growth Status 05/24/20 04:25 Nasopharyngeal Severe Acute Respiratory Syndrome - Final Complete Abnormal Results Test 05/24/20 04:21 Neutrophils (%) (Auto) 81.3 % Lymphocytes % 9.4 % Prothrombin Time 11.3 SECONDS Blood Urea Nitrogen 26 mg/dL Ferritin 8.7 ng/mL Albumin 4.9 g/dL Progress #1 Repeat Vital Signs Vital Signs Date Time Temp Pulse Resp B/P (MAP) Pulse Ox O2 Delivery O2 Flow Rate FiO2 05/24/20 05:35 100.7 116 16 115/58 (77) 99 Room Air 05/24/20 04:30 98 05/24/20 04:16 100.4 116 18 131/65 (87) 98 Room Air Progress: Condition improved - The patient feels significantly better. Labs suggest that he is mildly dehydrated. Swab was positive for Covid 19 chest x-ray shows mild changes in the left lung suggestive of the same. He feels better with treatment he is advised that he is to quarantine and follow up with his primary care physician. He voiced understanding indications for immediate healthcare consultation. He is safe for discharge Departure Departure Disposition: Home Diagnosis: Primary Impression: COVID-19 Condition: Improved Referrals: UNKNOWN (PCP) Home Medications: New Medications Added Scripts Ondansetron Hcl (ZOFRAN) 4 Mg Tabdis 4 MG PO Q6 HR PRN PRN for NAUSEA AND/OR VOMITING, #10 TAB Prov: HAROON NAYLOR M.D.-ER 05/24/20 Benzonatate (Tessalon Perle) 100 Mg Capsule 100 MG PO TID PRN PRN for COUGH, #20 CAPSULE Prov: HAROON NAYLOR M.D.-ER 05/24/20 HAROON NAYLOR M.D.-ER May 24, 2020 04:26 (Please note that portions of this note were completed with a voice recognition program. Efforts were made to edit the dictations but occasionally words are mis-transcribed.) Electronically Signed by: HAROON ANYLOR M.D. 05/24/20 0626 HAROON NAYLOR M.D. [id number] cc: SERINA ZARATE M.D. [facility] ID NOW COVID-19on 05-24-2020 ID NOW COVID-19 ID NOW COVID-19 COVID-19 RESULT INTERPRETATION: CoVID-19 Positive - Positive results do not rule out bacterial infection or co-infection with other viruses. CoVID-19 Negative - Negative results should be treated as presumptive and, if inconsistent with clinical signs and symptoms or necessary for patient mangement, should be tested with an alternative molecular assay. A negative result does not rule out co-infections with other pathogens. INVALID - The presence or absence of CoVID-19 Viral RNAs cannot be determined. Suggest testing with an alternate assay method. CoVID-19 Result: POSITIVE FOR COVID-19 [facility] Comment on above: Order Comment: Has S pecimen Been Collected? Y Antibiotics Taken/Given Before Culture Obtained: N Reason for COVID Test Suspicion of COVID 19 Implement Droplet PLUS Precautions (Y/N) Y RESULTS CALLED TO MILTON BARROSO RN, RBD BY Mirna Collins at 0508 on 05/24/20 LDHon 05-24-2020 LDH 215 U/L Normal 125-220 [facility] Comment on above: Order Comment: Colle cted by Care Area? N Performed By: #### F ER, LDH, PROCAL, CRP, CM #### [facility] CLIA # [id number] [address] [place] [address] PROCALCITONINon 05-24-2020 PROCALCITONIN 0.03 ng/mL Normal <0.50 [facility] Comment on above: Order Comment: Colle cted by Care Area? N Result Comment: * PC T >2.00 ng/mL: A PCT level above 2.00 ng/mL is associated with a high risk for progression to severe sepsis and/or septic shock. * PCT <0.50 ng/mL: A PCT level below 0.50 ng/mL is associated with a low risk for progression to severe sepsis and/or septic shock. NOTE: PCT levels below 0.50 ng/mL do not exclude an infection, because localized infections (without systemic signs) may also be associated with such low levels. If the PCT measurement is done very early after the systemic infection process has started (usually <6 hours), these values may still be low. Various non-infectious conditions are known to induce changes in PCT levels. PCT levels between 0.50 ng/mL and 2.00 ng/mL should be interpreted in the context of the specific clinical background and condition(s) of the individual patient. Performed By: #### F ER, LDH, PROCAL, CRP, CM #### [facility] CLIA # [id number] [address] [place] [address] PROTHROMBIN TIME / INRon INR Coag (PPP) [Relative time] 1.05 {INR} Normal 0.86-1.15 [facility] Comment on above: Order Comment: Colle cted by Care Area? N Result Comment: MICHELLE HART I.N.R. RANGES FOR ORAL ANTICOAGULANT THERAPY CONDITION RECOMMENDED I.N.R. DEEP VEIN THROMBOSIS.....................2.0 - 3.0 ACUTE MYOCARDIAL INFARCTION .............3.0 - 4.5 ATRIAL FIBRILLATION .....................2.0 - 3.0 CARDIAC VALVE REPLACEMENT (tissue).......2.0 - 3.0 CARDIAC VALVE REPLACEMENT (mechanical)...2.5 - 3.5 Performed By: #### D DIMER, PT #### [facility] CLIA # [id number] [address] [place] [address] PT Coag (PPP) [Time] 11.3 s High 9.54-10.90 [facility] Comment on above: Order Comment: Colle cted by Care Area? N Performed By: #### D DIMER, PT #### [facility] CLIA # [id number] [address] [place] [address] MONO W/REFLEX TO EBVon 11-16 Mononucleosis Screen Negative NEGATIVE [facility] [place], [place] CT ABDOMEN PELVIS W IV CONTR AST Additional Contrast? Radiologist Recommendationon 11-16-2019 [place], [facility] Incoming Radiant Results From [employer] [facility] - 11/16/2019 2:23 PM EDT EXAMINATION: CT OF THE ABDOMEN AND PELVIS WITH CONTRAST 11/16/2019 1:33 pm TECHNIQUE: CT of the abdomen and pelvis was performed with the administration of intravenous contrast. Multiplanar reformatted images are provided for review. COMPARISON: None. HISTORY: ORDERING SYSTEM PROVIDED HISTORY: patient with abdominal pain, rule out gallstones, fatty liver, splenic issues, ETC. FINDINGS: Lower Chest: Normal heart size. Lung bases clear. Organs: The liver, pancreas, adrenal glands and gallbladder appear unremarkable. Spleen is mildly enlarged measuring 14.5 cm in length. Mild anterior right perinephric and minimal superior left perinephric edema, otherwise kidneys appear unremarkable. GI/Bowel: No evidence of bowel obstruction or inflammation. Pelvis: Bladder and prostate appear unremarkable. Mild amount of free fluid in the pelvis. Peritoneum/Retroperi toneum: Normal caliber abdominal aorta. No suspicious lymphadenopathy. No ascites or free air. Bones/Soft Tissues: No significant osseous abnormality. IMPRESSION: 1. Mild splenomegaly. 2. Mild pelvic free fluid which is nonspecific but abnormal in male patient and may be reactive in nature. 3. Nonspecific mild anterior right perinephric and minimal superior left perinephric edema. [place] 1. Mild splenomegaly. 2. Mild pelvic free fluid which is nonspecific but abnormal in male patient and may be reactive in nature. 3. Nonspecific mild anterior right perinephric and minimal superior left perinephric edema. [place], [place] EXAMINATION: CT OF THE ABDOMEN AND PELVIS WITH CONTRAST 11/16/2019 1:33 pm TECHNIQUE: CT of the abdomen and pelvis was performed with the administration of intravenous contrast. Multiplanar reformatted images are provided for review. COMPARISON: None. HISTORY: ORDERING SYSTEM PROVIDED HISTORY: patient with abdominal pain, rule out gallstones, fatty liver, splenic issues, ETC. FINDINGS: Lower Chest: Normal heart size. Lung bases clear. Organs: The liver, pancreas, adrenal glands and gallbladder appear unremarkable. Spleen is mildly enlarged measuring 14.5 cm in length. Mild anterior right perinephric and minimal superior left perinephric edema, otherwise kidneys appear unremarkable. GI/Bowel: No evidence of bowel obstruction or inflammation. Pelvis: Bladder and prostate appear unremarkable. Mild amount of free fluid in the pelvis. Peritoneum/Retroperi toneum: Normal caliber abdominal aorta. No suspicious lymphadenopathy. No ascites or free air. Bones/Soft Tissues: No significant osseous abnormality. [place] C.trachomatis N.gonorrhoeae DNA, Urineon 11-15-2019 C. trachomatis DNA ,Urine Negative NEGATIVE [place], [place] Comment on above: CHLAMYDIA TRACHOMATI S DNA not detected by nucleic acid amplification. This test is intended for medical purposes only and is not valid for the evaluation of suspected sexual abuse or for other forensic purposes. In certain contexts, culture may be required to meet applicable laws and regulations for diagnosis of C. trachomatis and N. gonorrhoeae infections. Per 2014 CDC recommendations, this test does not include confirmation of positive results by an alternative nucleic acid target. N. gonorrhoeae DNA, Urine Negative NEGATIVE [place] Comment on above: NEISSERIA GONORRHOEA E DNA not detected by nucleic acid amplification. This test is intended for medical purposes only and is not valid for the evaluation of suspected sexual abuse or for other forensic purposes. In certain contexts, culture may be required to meet applicable laws and regulations for diagnosis of C. trachomatis and N. gonorrhoeae infections. Per 2014 CDC recommendations, this test does not include confirmation of positive results by an alternative nucleic acid target. Specimen Description .URINE [place], [place] COVID-19on 11-15-2019 SARS-CoV-2 Not Detected Not Detected [place], [place] Comment on above: The specimen is NEGATIVE for SARS-CoV-2, the novel coronavirus associated with COVID-19. A negative result does not rule out COVID-19. This test has been authorized by the FDA under an Emergency Use Authorization (EUA) for use by authorized laboratories. Fact sheet for Healthcare Providers: https://www.fda.gov/media/748638/download Fact sheet for Patients: https://www.fda.gov/media/669589/download METHODOLOGY: RT-PCR SARS-CoV-2, PCR [place], [place] SARS-CoV-2, Rapid [place], [place] Source .NASOPHARYNGEAL SWAB [place] Celiac Reflex Panelon 2019 Gliadin Deaminidated Peptide AB IGA 1.6 U/mL <7.0 [place] Comment on above: CELIAC INTERPRETATION <7.0 Negative 7.0-10.0 Equivocal >10.0 Positive units: U/mL Gliadin Deaminidated Peptide AB IGG <0.4 <7.0 U/mL [place] Comment on above: CELIAC INTERPRETATION <7.0 Negative 7.0-10.0 Equivocal >10.0 Positive units: U/mL IgA [Mass/Vol] 180 mg/dL 70 - 400 mg/dL [place] TISSUE TRANSGLUTAMINASE ANTIBODY IGG 0.7 U/mL <7.0 [place] Comment on above: CELIAC INTERPRETATION <7.0 Negative 7.0-10.0 Equivocal >10.0 Positive units: U/mL TISSUE TRANSGLUTAMINASE IGA 0.5 U/mL <7.0 [place] Comment on above: CELIAC INTERPRETATION <7.0 Negative 7.0-10.0 Equivocal >10.0 Positive units: U/mL EKG 12 Leadon 11-15-2019 Atrial Rate 66 BPM [place] P Ramona 97 degrees [place] P-R Interval 188 ms [place] Q-T Interval 394 ms [place] QRS Duration 94 ms [place] QTc Calculation (Bazett) 413 ms [place] R Ramona 63 degrees [facility], [place] T Ramona 40 degrees [place], [place] Ventricular Rate 66 BPM [place], [place] Normal sinus rhythm Normal ECG [place], [facility] Incoming Ekg Results From [facility] - 11/15/2019 5:40 PM EDT Normal sinus rhythm Normal ECG [place] Echocardiogram w Sector w Do ppler Pediatricon 11-15-2019 [place], p[place] Incoming Cardio Results From [facility]/ - 11/15/2019 5:25 PM EDT Pediatric/Congenital Transthoracic Echocardiography (TTE) Report Demographics Patient Name COLLETTE HORTON Date of Study 11/15/2019 Date of 2000 Gender Male Age 19 year(s) Race Room Number [id number]^HASAN^ANSAM Height: 69.29 inch, 176 cm Corporate ID [id number] Weight: 222.67 pounds, 101 # kg Patient Acct [id number] BSA: 2.17 m^2 BMI: 32.61 # kg/m^2 MR # [id number] Operations Architect Janice Hernandez Interpreting Pablo Foreman Physician Referring Referring - PICU Nurse Physician Practitioner Conclusions Summary Structurally normal heart with normal systolic function. No obvious evidence of congenital cardiac abnormalities. Normal study. Signature ---- ---- ---- ---- Procedure Type of Study Pediatric/Congenital TTE Procedure:Echo Sector/Doppler. Procedure Date Date: 11/15/2019Start: 04:52 PM Technical Quality: Adequate visualization Probe:5.5 MHZ. Patient Status: Inpatient HR: 60 bpm Findings Situs/Connections Normal cardiac and visceral situs. Pulmonary Veins Normal pulmonary venous return. Systemic Veins Normal systemic venous return. Atrial Septum No evidence of atrial level shunting. Atria Normal atrial sizes. AV Valves Normal atrioventricular valves without evidence of stenosis and/or regurgitation. Ventricular Septum No evidence of ventricular level shunting. Ventricles Normal ventricular sizes, without evidence of hypertrophy. The biventricular systolic function is normal. Aortic Valve Normal trileaflet aortic valve without evidence of stenosis or regurgitation. Pulmonic Valve Normal pulmonary valve without evidence of stenosis or regurgitation. Coronary Arteries Normal proximal coronary artery anatomy. Aorta Left-sided aortic arch with normal branching and no evidence of coarctation. Pulmonary Arteries The main and branch pulmonary arteries are normal sized without peripheral stenosis. Miscellaneous Normal aortic root dimension. Valves Tricuspid Valve Peak gradient:4 mmHg Peak E-wave:1 m/s TR velocity:2.51 m/s TR gradient:25.2 mmHg Estimated RAP:5 mmHg Estimated RVSP:30 mmHg Pulmonic Valve Peak velocity: 0.83 m/s Peak gradient: 2.76 mmHg Estimated PASP: 30.2 mmHg Mitral Valve Peak gradient: 5.76 mmHg Peak E-Wave: 1.2 m/s Aortic Valve Annulus:21 mm Peak velocity: 1.02 m/s Peak gradient: 4.16 mmHg Structures Left Atrium LA dimension: 37 mm Left Ventricle Diastolic dimension: 52 mm Systolic dimension: 31 mm Septum diastolic: 9 mm PW diastolic: 9 mm FS: 40.4 % EF Teicholz:70.7 % Right Ventricle Diastolic dimension: 26 mm Systolic pressure: 30.2 mmHg Vessels Pulmonary Arteries Right PA peak velocity:1.16 m/s Right PA peak gradient:5 mmHg Main PA diameter: Left PA peak velocity:1 m/s Left PA peak gradient:4 mmHg [place] Pediatric/Congenital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 readings): Weight 11/13/19 2345 (!) 100.8 kg 11/13/19 1658 (!) 99.8 kg Exam General: Patient laying in bed, in NAD. . Eyes: normal conjunctiva and lids; no discharge, erythema or swelling HEENT: Nose: clear, normal mucosa, well position, well formed pinnae Neck: normal, no cervical tenderness Chest: normal, no increase in tenderness with palpation over sternum Pulm: Normal respiratory effort. Lungs clear to auscultation CV: RRR, nl S1 and S2, soft systolic murmur on left sternal border ; no edema, capillary refill < 3 seconds Abdomen: negative findings: no scars, striae, dilated veins, rashes, or lesions, umbilicus normal, symmetric, no organomegaly, bowel sounds normal, no bruits heard, spleen non-palpable, negative Rogel's sign, positive findings: mild tenderness in epigastric and LUQ, RUQ, no hepatosplenomegaly : not examined Skin: No rashes or abnormal dyspigmentation Neuro: normal mental status Data Old records and images have been reviewed Lab Results Specimen Information: Urine, clean catch Component Value Ref Range & Units Status Collected Lab Color, UA YELLOW YELLOW Final 11/13/2019 9:00 PM [employer] - Be Turbidity UA CLEAR CLEAR Final 11/13/2019 9:00 PM [employer] - Be Glucose, Ur NEGATIVE NEGATIVE Final 11/13/2019 9:00 PM [employer] - Be Bilirubin Urine NEGATIVE NEGATIVE Final 11/13/2019 9:00 PM [employer] - Be Ketones, Urine LARGEAbnormal NEGATIVE Final 11/13/2019 9:00 PM [employer] - Be Specific [place], UA 1.026 1.005 - 1.030 Final 11/13/2019 9:00 PM [employer] - Be Urine Hgb NEGATIVE NEGATIVE Final 11/13/2019 9:00 PM [employer] - Be pH, UA 5.5 5.0 - 8.0 Final 11/13/2019 9:00 PM [employer] - Be Protein, UA NEGATIVE NEGATIVE Final 11/13/2019 9:00 PM [employer] - Be Urobilinogen, Urine Normal Normal Final 11/13/2019 9:00 PM [employer] - Be Nitrite, Urine NEGATIVE NEGATIVE Final 11/13/2019 9:00 PM [employer] - Be Leukocyte Esterase, Urine NEGATIVE NEGATIVE Final 11/13/2019 9:00 PM [employer] - Be 11/13/2019 Lipase 23 CRP: 0.4 mg/L Sed Rate: 1 mm HIV Screen: non-reactive GC/Chlamydia: negative 11/14/2019 Occult blood screen Stool sample: negative x 3 Celiac reflex panel: negative 11/15/19 Covid-19:negative Radiology 11/16/19 - CT abdomen with contrast Impression 1. Mild splenomegaly. 2. Mild pelvic free fluid which is nonspecific but abnormal in male patient and may be reactive in nature. 3. Nonspecific mild anterior right perinephric and minimal superior left perinephric edema. 11/14/19 - Xray of Abdomen FINDINGS: Gas is noted in the intestinal tract in a nonspecific nonobstructive pattern. No organomegaly or free air is noted. Osseous structures are unremarkable. No abnormal calcifications are present. Unremarkable radiographic appearance of the abdomen. No bowel obstruction, abnormal calcifications, organomegaly or free air. However, it evaluation is limited. Hemidiaphragms are not completely included on the study. (See actual reports for details) Clinical Impression Patient is a 19 y.o. male with a past medical history of hypothyroidism who presents with gradual loss of appetite, abdominal pain, vomiting and had reports 45 lbs weight loss in 2 months (growth chart only shows 8lb weight loss). Patient has been evaluated twice in the past month without any significant findings on blood work and both chest and abdominal imaging. Most likely cause of weight lossis poor oral intake, as patient has been unable to tolerate anything PO since admission. Other differentials include malignancy (because of significant unintentional weight loss), peptic ulcer with GERD (because of pain at sternum and epigastrium after PO attempts) , IBD (unlikely due tonormal labs), and GC (because patient is sexually active). Cholecystitis, pancreatitis, appendicitis ruled out per US on 11/11. Celiac panel negative 11/12. Occult blood (stool) negative 11/12. GI consulted - scheduled EGD for 11/16/2019 and NPO at midnight. 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 Respiratory - on RA - no concerns Cardiology - soft systolic murmur on physical exam - bradycardia (to 30s at night) - family history of cardiac at young age - Consult cardiology prior to EGD to evaluate for procedure risk and for workup of bradycardia - echocardiogram scheduled for 11/15/2019 FEN - clear liquid diet, advance as tolerated - Maintenance IV fluids of D5 NS, 100 ml/hr - NPO at midnight in preparation for EGD on 11/15/19 - Can return to clears or regular diet as tolerated GI - presented with abdominal pain with emesis, weight loss of 45 lbs, loss of appetite - ABD XR within normal limits - celiac panel negative - lipase wnl - Protonix 40mg tablet, once daily in morning - Tylenol and Zofran prn - GI consulted - EGD 11/15/19 unremarkable ; will follow up on surgical pathology - CT abdomen 11/16/19 shows mild splenomegaly, mild pelvic free fluid (nonspecific), and nonspecfic mild anterior right perinephric and minimal superior left perinephric edema - Will test for [place]/EBV - Will be sent home with Zofran BID and pantoprazole qday for 14 days until next GI follow up outpatient ID - HIV negative - GC/Chlamydia negative - Given CT abdomen results, will order testing for mononucleosis Endocrine - Dx of hypothroidism since January 2019 - 11/13/19 Thyroid level on admission wnl - Continue on home dose of [place] Thyroid 60 mg, qday The plan of care was discussed with the Attending Physician: [] Dr. Patience Osborn [x] Dr. Emily Florence [] Dr. Teetee Frausto [] Dr. Celena Hollingsworth MD 2:40 PM Time spent: 34 min Pending mono/EBV titers. Will continue to monitor oral intake. GC Modifier: I have performed the critical and foley portions of the service and I was directly involved in the management and treatment plan of the patient. History as documented by resident Dr. Hollingsworth on 11/16/2019 reviewed, caregiver/patient interviewed and patient examined by me. I have seen and examined the patient on 11/16/2019. Agree with above with revisions as marked. Emily Florence DO * Lily Douglass RN - 11/16/2019 12:39 PM EDT gIVEN ZOFRAN BEFORE MEAL PER PATIENT AND MOTHER REQUEST TO PREVENT NAUSEA. * Minerva Brito RN - 11/16/2019 11:00 AM EDT Patient transferred back to room 638 via bed. Parents accompanied patient to room . * Minerva Brito RN - 11/16/2019 10:53 AM EDT Report called to Guerline ARREAGA. * Minerva Brito RN - 11/16/2019 10:25 AM EDT Parents at bedside. * Sumaya Beasley MS, RD, LD - 11/15/2019 10:25 AM EDT PEDIATRIC NUTRITION FOLLOW UP Admission Date: 11/13/2019 Clifford Joe is a 19 y.o. male Subjective/Current Data: Pt continues to c/o poor appetite and abd pain. Continues on clear liquids. Plan for EGD tomorrow. Labs: Reviewed Medications: Reviewed - PPI Anthropometric Measures: Height: 5' 9.29 (176 cm) Current Weight: Weight - Scale: (!) 222 lb 3.6 oz (100.8 kg) Comparative Standards Estimated Calorie Needs: 2000 kcals/day Estimated Protein Needs: 85-95 gm/day Nutrition-focused Physical Findings no issues reported Nutrition Prescription PO Diet Orders Current diet order: DIET PEDS CLEAR LIQUIDS; Nutrition Support Order none Intake vs. Needs: less than needs Nutrition Diagnosis and Goal Problem: Inadequate oral intake Etiology/related to: abd pain, N/V Symptoms/Signs/as evidenced by: 1.9% wt loss x 1.5 weeks, pt reports of minimal PO intake Goal: intake greater than 50% nutritional needs. Education Needs: none at present time Nutrition Risk Level: High NUTRITION RECOMMENDATIONS / MONITORING / EVALUATION 1. Clear liquids as tolerated. 2. Monitor results from EGD. Sumaya Beasley MS, RD, LD * Emily Florence DO - 11/15/2019 9:04 AM EDT [facility] Pediatric Resident Note Patient - Clifford Joe - 2000 Date of Admission - 11/13/2019 4:49 PM Date of evaluation - 11/15/2019 0638/0638- Hospital Day - 2 Primary Care Physician - Serina Zarate MD A 19 y.o. male with a significant past medical history of hypothyroidism who presented with abdominal pain, vomiting and weight loss for 2 months. Subjective Patient sitting up in bed getting ready to eat breakfast this morning. He reports upper LUQ/RUQ andepigastric pain rated at 9/10 overnight. Pain improved only a little bit to 8/10 with two tylenol (1000mg). He describes simultaneous chest pain with abdominal pain rated at 9/10 between his ribs that are sharp/achy in quality. He had a bowel movement this morning (soft , with liquid, and brown in color) which did not modify his pain in any way. He does not report any vomiting this AM. Per patient, he does have a family history of cardiac related - his aunt at age 15 due to coronary disease. Overnight event: Cardiopulmonary monitoring showed bradycardia (down to 38). He reports chest pain as described above. Current Medications Current Medications thyroid 60 mg Oral Daily pantoprazole 40 mg Oral BID AC lidocaine, sodium chloride flush, ondansetron, acetaminophen Diet/Nutrition DIET PEDS CLEAR LIQUIDS; Diet NPO, After Midnight Allergies Patient has no known allergies. Vitals Temperature Range: Temp: 97.2 F (36.2 C) Temp Av.9 F (36.6 C) Min: 97.2 F (36.2 C) Max: 98.6 F(37 C) BP Range: Systolic (24hrs), Av , Min:108 , Max:121 Diastolic (24hrs), Av, Min:52, Max:56 Pulse Range: Pulse Av.8 Min: 48 Max: 62 Respiration Range: Resp Av.2 Min: 11 Max: 23 I/O (24 Hours) Intake/Output Summary (Last 24 hours) at 11/15/2019 0912 Last data filed at 11/15/2019 0637 Gross per 24 hour Intake 2463 ml Output 1550 ml Net 913 ml UOP: 0.8 ml/kg/hr Patient Vitals for the past 96 hrs (Last 3 readings): Weight 11/13/19 2345 (!) 100.8 kg 11/13/19 1658 (!) 99.8 kg Exam General: Patient sitting in bed, appears comfortable. Eyes: normal conjunctiva and lids; no discharge, erythema or swelling HEENT: Nose: clear, normal mucosa, well position, well formed pinnae Neck: normal, no cervical tenderness Chest: normal, no increase in tenderness with palpation over sternum Pulm: Normal respiratory effort. Lungs clear to auscultation CV: RRR, nl S1 and S2, soft systolic murmur on left sternal border ; no edema, capillary refill < 3 seconds Abdomen: negative findings: no scars, striae, dilated veins, rashes, or lesions, umbilicus normal, symmetric, no organomegaly, bowel sounds normal, no bruits heard, spleen non-palpable, negative Rogel's sign, positive findings: tenderness without guarding, without rebound, epigastric LUQ, RUQ, no h epatosplenomegaly : not examined Skin: No rashes or abnormal dyspigmentation Neuro: normal mental status Data Old records and images have been reviewed Lab Results Specimen Information: Urine, clean catch Component Value Ref Range & Units Status Collected Lab Color, UA YELLOW YELLOW Final 11/13/2019 9:00 PM [employer] - Be Turbidity UA CLEAR CLEAR Final 11/13/2019 9:00 PM [employer] Glucose, Ur NEGATIVE NEGATIVE Final 11/13/2019 9:00 PM [employer] - Be Bilirubin Urine NEGATIVE NEGATIVE Final 11/13/2019 9:00 PM [employer] - Be Ketones, Urine LARGEAbnormal NEGATIVE Final 11/13/2019 9:00 PM [employer] - Be Specific [place], UA 1.026 1.005 - 1.030 Final 11/13/2019 9:00 PM [employer] - Be Urine Hgb NEGATIVE NEGATIVE Final 11/13/2019 9:00 PM [employer] - Be pH, UA 5.5 5.0 - 8.0 Final 11/13/2019 9:00 PM [employer] - Be Protein, UA NEGATIVE NEGATIVE Final 11/13/2019 9:00 PM [employer] Urobilinogen, Urine Normal Normal Final 11/13/2019 9:00 PM [employer] - Be Nitrite, Urine NEGATIVE NEGATIVE Final 11/13/2019 9:00 PM [employer] - Be Leukocyte Esterase, Urine NEGATIVE NEGATIVE Final 11/13/2019 9:00 PM [employer] - Be 11/13/2019 Lipase 23 CRP: 0.4 mg/L Sed Rate: 1 mm HIV Screen: non-reactive GC/Chlamydia: negative 11/14/2019 Occult blood screen Stool sample: negative x 3 Celiac reflex panel: negative 11/15/19 Covid-19: pending Radiology Xray of Abdomen FINDINGS: Gas is noted in the intestinal tract in a nonspecific nonobstructive pattern. No organomegaly or free air is noted. Osseous structures are unremarkable. No abnormal calcifications are present. Unremarkable radiographic appearance of the abdomen. No bowel obstruction, abnormal calcifications, organomegaly or free air. However, it evaluation is limited. Hemidiaphragms are not completely included on the study. (See actual reports for details) Clinical Impression Patient is a 19 y.o. male with a past medical history of hypothyroidism who presents with gradual loss of appetite, abdominal pain, vomiting and had reports 45 lbs weight loss in 2 months (growth chart only shows 8lb weight loss). Patient has been evaluated twice in the past month without any significant findings on blood work and both chest and abdominal imaging. Most likely cause of weight lossis poor oral intake, as patient has been unable to tolerate anything PO since admission. Other differentials include malignancy (because of significant unintentional weight loss), peptic ulcer with GERD (because of pain at sternum and epigastrium after PO attempts) , IBD (unlikely due tonormal labs), and GC (because patient is sexually active). Cholecystitis, pancreatitis, appendicitis ruled out per US on 11/11. Celiac panel negative 11/12. Occult blood (stool) negative 11/12. GI consulted - scheduled EGD for 11/16/2019 and NPO at midnight. 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 Respiratory - on RA - no concerns Cardiology - soft systolic murmur on physical exam - bradycardia (to 30s at night) - family history of cardiac at young age - Consult cardiology prior to EGD to evaluate for procedure risk and for workup of bradycardia - echocardiogram scheduled for 11/15/2019 FEN - clear liquid diet, advance as tolerated - Maintenance IV fluids of D5 NS, 100 ml/hr - NPO at midnight in preparation for EGD on 11/15/19 GI - presented with abdominal pain with emesis, weight loss of 45 lbs, loss of appetite - ABD XR within normal limits - celiac panel negative - lipase wnl - Protonix 40mg tablet, once daily in morning - Tylenol and Zofran prn - GI consulted - EGD schedule for 11/15/19 - Consider CT, if EGD unremarkable ID - HIV negative - GC/Chlamydia negative Endocrine - Dx of hypothroidism since January 2019 - 11/13/19 Thyroid level on admission wnl - Continue on home dose of [place] Thyroid 60 mg, qday The plan of care was discussed with the Attending Physician: [] Dr. Patience Osborn [x] Dr. Emily Florence [] Dr. Teetee Frausto [] Dr. Celena Hollingsworth MD 9:12 AM Time spent: 34 min GC Modifier: I have performed the critical and foley portions of the service and I was directly involved in the management and treatment plan of the patient. History as documented by resident Dr. Hollingsworth on 11/15/2019 reviewed, caregiver/patient interviewed and patient examined by me. I have seen and examined the patient on 11/15/2019. Agree with above with revisions as marked. Emily Florence DO * Sumaya Beasley MS, RD, LD - 11/14/2019 10:45 AM EDT PEDIATRIC NUTRITION INITIAL ASSESSMENT (Positive Nutrition Screen - Poor appetite/PO, weight loss, N/V) Admission Date: 11/13/2019 Clifford Joe is a 19 y.o. male Subjective/Current Data: Pt c/o abd pain and intermittent N/V for past couple of months. States his appetite has been decreasing, but PO intake became significantly worse over past 1.5 weeks d/t increased N/V and inability to tolerate any PO (solids and/or liquids). Pt reports trying chicken broth this morning, but caused an increase in abd discomfort. Per growth chart, pt has lost ~2 kg (1.9%) x 1.5 weeks. Objective Data: Patient Active Problem List Diagnosis Date Noted Abdominal pain, acute, epigastric 11/13/2019 Epigastric abdominal pain 11/13/2019 Labs: Reviewed Medications: Reviewed Anthropometric Measures: Height: 5' 9.29 (176 cm) Current Weight: Weight - Scale: (!) 222 lb 3.6 oz (100.8 kg) Admission weight: (!) 220 lb (99.8 kg) Body mass index is 32.54 kg/m . BMI for Age 99%ile Comparative Standards Estimated Calorie Needs: 2000 kcals/day Estimated Protein Needs: 85-95 gm/day Nutrition-focused Physical Findings no issues reported Nutrition Prescription PO Diet Orders Current diet order: DIET PEDS CLEAR LIQUIDS; Nutrition Support Order none Intake vs. Needs: less than needs Nutrition Diagnosis and Goal Problem: Inadequate oral intake Etiology/related to: abd pain, N/V Symptoms/Signs/as evidenced by: 1.9% wt loss x 1.5 weeks, pt reports of minimal PO intake Goal: intake greater than 50% nutritional needs. Education Needs: none at present time Nutrition Risk Level: High NUTRITION RECOMMENDATIONS / MONITORING / EVALUATION 1. Continue clear liquids for now. 2. If pt able to tolerate some clear liquids, can consider adding Ensure Clear ONS. Sumaya Beasley MS, RD, LD * Patience Osborn MD - 11/14/2019 8:22 AM EDT [facility] Pediatric Resident Note Patient - Clifford Joe - 2000 Date of Admission - 11/13/2019 4:49 PM Date of evaluation - 11/14/2019 0638/0638-01 Hospital Day - 1 Primary Care Physician - Serina Zarate MD A 19 y.o. male with a significant past medical history of hypothyroidism who presented with abdominal pain, vomiting and weight loss for 2 months. Subjective Patient continues to report RUQ pain that he rates 9/10. He states that the medication did nothing to ease his pain. Patient is lying supine on bed, maintaining continuous conversation easily. He describes pain as stabbing and consistent, localized to just below his right rib cage and epigastrium. He has no appetite. Has attempted to sip liquids this morning, resulting in chest pain that he localized over his sternum and epigastric region. Reports mild self- resolving shortness of breath upon waking up this morning. Reports no vomiting or BM this morning. Upon discussion, patient reports that his chest pain is always localized at his sternum and epigastrium, and is worse in the mornings. Reports that the most recent worsening of his symptoms started after a Father's Day meal of steak, and that he has not been able to eat steaks since then - reporting severe pain and nausea in those instances. He has not taken NSAIDs or acetaminophen for his pain except when being seen by providers over the last 2 weeks. Additionally, he reports that he has had episodes of bradycardia over the last week. He has been woken up by his electronic watch showing his HR 36-38, accompanied by severe chest pain. Once his HR reaches 50, his chest pain lessens. He is currently not on a monitor. Positive for intermittent cold i ntolerance and body aches over the last several months. Was diagnosed with hypothyroidism January2019, last dose change was May 2019, with no noticeable symptom changes. Current Medications Current Medications pantoprazole 40 mg Oral QAM AC thyroid 60 mg Oral Daily lidocaine, sodium chloride flush, acetaminophen, ondansetron Diet/Nutrition DIET PEDS CLEAR LIQUIDS; Allergies Patient has no known allergies. Vitals Temperature Range: Temp: 97.7 F (36.5 C) Temp Av F (36.7 C) Min: 97.7 F (36.5 C) Max: 98.2 F (36.8 C) BP Range: Systolic (24hrs), Av , Min:109 , Max:128 Diastolic (24hrs), Av, Min:60, Max:70 Pulse Range: Pulse Av.5 Min: 56 Max: 72 Respiration Range: Resp Av Min: 16 Max: 28 I/O (24 Hours) Intake/Output Summary (Last 24 hours) at 11/14/2019 1044 Last data filed at 11/14/2019 0707 Gross per 24 hour Intake 582 ml Output 400 ml Net 182 ml Patient Vitals for the past 96 hrs (Last 3 readings): Weight 11/13/19 2345 (!) 100.8 kg 11/13/19 1658 (!) 99.8 kg Exam General: Patient looks mildly uncomfortable, very slow to move for exam Eyes: normal conjunctiva and lids; no discharge, erythema or swelling HENT: Nose: clear, normal mucosa, Neck: normal structure or Ears: well positioned, well formed pinnae, unable to observe TM due to cerumen build up Neck: normal, no cervical tenderness Chest: normal, no increase in tenderness with palpation over sternum Pulm: Normal respiratory effort. Lungs clear to auscultation CV: RRR, nl S1 and S2, no murmur Abdomen: negative findings: no scars, striae, dilated veins, rashes, or lesions, umbilicus normal, symmetric, no organomegaly, bowel sounds normal, no bruits heard, spleen non-palpable, negative Rogel's sign, positive findings: tenderness with voluntary guarding, without rebound, epigastric and RUQ, no organomegaly : not examined Skin: No rashes or abnormal dyspigmentation Neuro: normal mental status Data Old records and images have been reviewed Lab Results Specimen Information: Urine, clean catch Component Value Ref Range & Units Status Collected Lab Color, UA YELLOW YELLOW Final 11/13/2019 9:00 PM [employer] - Be Turbidity UA CLEAR CLEAR Final 11/13/2019 9:00 PM [employer] - Be Glucose, Ur NEGATIVE NEGATIVE Final 11/13/2019 9:00 PM [employer] - Be Bilirubin Urine NEGATIVE NEGATIVE Final 11/13/2019 9:00 PM [employer] - Be Ketones, Urine LARGEAbnormal NEGATIVE Final 11/13/2019 9:00 PM [employer] - Be Specific [place], UA 1.026 1.005 - 1.030 Final 11/13/2019 9:00 PM [employer] - Be Urine Hgb NEGATIVE NEGATIVE Final 11/13/2019 9:00 PM [employer] - Be pH, UA 5.5 5.0 - 8.0 Final 11/13/2019 9:00 PM [employer] - Be Protein, UA NEGATIVE NEGATIVE Final 11/13/2019 9:00 PM [employer] - Be Urobilinogen, Urine Normal Normal Final 11/13/2019 9:00 PM [employer] - Be Nitrite, Urine NEGATIVE NEGATIVE Final 11/13/2019 9:00 PM [employer] - Be Leukocyte Esterase, Urine NEGATIVE NEGATIVE Final 11/13/2019 9:00 PM [employer] - Be HIV Screen: non-reactive CRP: 0.4 mg/L Sed Rate: 1 mm Radiology Xray of Abdomen FINDINGS: Gas is noted in the intestinal tract in a nonspecific nonobstructive pattern. No organomegaly or free air is noted. Osseous structures are unremarkable. No abnormal calcifications are present. Unremarkable radiographic appearance of the abdomen. No bowel obstruction, abnormal calcifications, organomegaly or free air. However, it evaluation is limited. Hemidiaphragms are not completely included on the study. (See actual reports for details) Clinical Impression Patient is a 19 y.o. male with a past medical history of hypothyroidism who presents with gradual loss of appetite, abdominal pain, vomiting and had 45 lbs weight loss in 2 months. Patient has been evaluated twice in the past month without any significant findings on blood work and both chest and abdominal imaging. Most likely cause of weight loss is poor oral intake, as patient has been unable to tolerate anything PO since admission. Other differentials include malignancy (because of significant unintentional weight loss), peptic ulcer with GERD (because of pain at sternum and epigastrium after PO attempts) , IBD (because patientreports purple loose stool and weight loss), and GC (because patient is sexually active). Cholecystitis, pancreatitis, appendicitis ruled out per US on 11/11. Will consider abdominal CT scan or upper/lower scopes. GI consult warranted as patient is not improving and is unable to tolerate anything PO. Due to his reported bradycardia, will monitor his heart rate to determine whether an ECHO is warranted to assess any cardiac dysfunction. Due to his reported cold intolerance and body aches, consider reassessing his thyroid function if symptoms worsen. Plan Monitor vitals, start heart monitor, I/O Clear liquid diet, will advance at tolerated Maintenance fluid of D5 NS, 100ml/hr Protonix 40mg tablet, once daily in morning Tylenol and Zofran prn Continue home Wentworth Thyroid 60mg, once daily Labs: waiting for Chlamydia and Gonorrhea results Imaging: waiting for abdominal xray results Consider abdominal CT or scope if KUB is normal and symptoms don't improve GI consult The plan of care was discussed with the Attending Physician: [x] Dr. Patience Osborn [] Dr. Princess Malloy [] Dr. Fatoumata Zaragoza [] Dr. Teetee Frausto [] Dr. Celena Lynne [] Attending doctor: Barbara Villasenor DO 10:44 AM PEDIATRIC ATTENDING ADDENDUM GC Modifier: I have performed the critical and foley portions of the service and I was directly involved in the management and treatment plan of the patient. History as documented by resident, Dr. Villasenor on 11/14/2019 reviewed, caregiver/patient interviewed and patient examined by me. Agree with above with revisions and additions as marked. Peds GI (Dr Pedro) consulted. Will add-on celiac screening. Plan for endoscopy on Friday AM. Virtual visit with Family and Dr Pedro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
[2024-08-17 12:51] LABS: Basophils Percent Auto 0.2 % (0.2-2.0); Eosinophils Percent Auto 0.7 % (0.9-7.0); Hemoglobin 14.2 g/dL (14.0-18.0); Immature Granulocytes Abs Auto 0.01 10^3/uL (0.00-0.03); Immature Granulocytes Pct Auto 0.2 % (0.0-0.5); Lymphocytes Absolute Auto 2.1 10^3/uL (1.2-3.8); Lymphocytes Percent Auto 47.3 % (20.5-60.0); Mean Corpuscular HGB Conc 34.6 g/dL (29.9-35.2); Mean Corpuscular Hemoglobin 29.7 pg (25.9-34.0); Mean Corpuscular Volume 85.8 fL (80.0-94.0); Mean Platelet Volume 10.1 fL (9.5-13.5); Monocytes Absolute Auto 0.4 10^3/uL (0.3-0.8); Monocytes Percent Auto 8.3 % (1.7-12.0); Neutrophils Absolute Auto 1.9 10^3/uL (1.4-6.5); Neutrophils Percent Auto 43.3 % (43.0-75.0); Platelet Count 219 10^3/uL (150-450); Red Blood Count 4.78 10^6/uL (4.70-6.10); Red Cell Distribution Width 12.8 % (11.0-15.0); White Blood Count 4.5 10^3/uL (4.0-11.0)
[2024-08-17 13:07] LABS: Bilirubin Urine NEGATIVE (NEGATIVE); Blood Urine NEGATIVE (NEGATIVE); Clarity Urine CLEAR (CLEAR); Color Urine YELLOW (YELLOW); Glucose Urine UA NEGATIVE (NEGATIVE); Ketones Urine NEGATIVE (NEGATIVE); Leukocyte Esterase Urine NEGATIVE (NEGATIVE); Nitrite Urine NEGATIVE (NEGATIVE); Protein Urine NEGATIVE (NEG/TRACE); Specific Gravity Urine 1.015 (1.005-1.025)
[2024-08-17 13:13] LABS: Alanine Aminotransferase 136 U/L (16-63); Albumin Globulin Ratio 1.2; Alkaline Phosphatase 76 U/L (46-116); Anion Gap 10.3; Aspartate Amino Transferase 44 U/L (15-37); BUN Creatinine Ratio 10.1; Bilirubin Total 0.5 mg/dL (0.2-1.0); Calcium 9.2 mg/dL (8.5-10.1); Carbon Dioxide 30.3 mmol/L (21.0-32.0); Chloride 105 mmol/L (98-107); Estimated GFR (African America >60 (>=60 mL/min/1.73m^2); Estimated GFR (Non-African Ame >60 (>=60 mL/min/1.73m^2); Globulin 3.4 g/dL; Glucose 94 mg/dL (74-106); Potassium 3.6 mmol/L (3.5-5.1); Sodium 142 mmol/L (136-145); Total Protein 7.4 g/dL (6.4-8.2)
[2024-08-17 13:17] LABS: Bacteria Urine TRACE #/HPF (NONE SEEN); Crystals Seen? None Seen #/HPF (None Seen); Mucus Urine TRACE (NONE SEEN); RBC Urine NONE SEEN #/HPF (0-2); Squamous Epithelial Cell Urine NONE SEEN #/LPF (NONE/RARE); WBC Urine 0-2 #/HPF (NONE SEEN)
[2024-08-17 13:18] LABS: Cast Seen? NONE SEEN #/LPF (NONE SEEN); Urine Culture Indicated ALREADY ORDERED
== END 2024-08-17 12:22 | disposition home or self-care (01) ==
LOC: LAB 12:23
PROVIDERS: PCP Family Medicine; Visit Provider Family Medicine
DX: R31.9 Hematuria, unspecified (principal)
CPT/HCPCS: 36415; 80053; 81001; 85025; 87086